=== PATIENT | female | born 1930 | race Caucasian/White ===

== ENCOUNTER → 2016-06-05 | Outpatient (CLI) | payer MEDICARE, OTHER, MEDICAID ==
[~2016-06-05] MED LIST: ADVIL200 MG PO; ANTIVERT25 MG PO; ARICEPT10 MG PO; ASPIRIN LO-DOSE81 MG PO; BAC/NEO/POLY O3.5 GM TOP; CALCIUM CARBON600 MG PO; CARDIZEM SR120 MG PO; CELEXA10 MG PO; CLARITIN10 MG PO; COLACE100 MG PO; DITROPAN XL10 MG PO; DULCOLAX10 MG R; FAMOTIDINE10 MG PO; FEOSOL325 MG PO; FISH OIL1000 MG PO; FLONASE 50 MCG/16 GM INH; FOLBIC RF TABL1 EACH PO; ICAPS MV TABLE1 EACH PO; ICAPS TABLET1 EACH PO; IMDUR30 MG PO; IMODIUM2 MG PO; KEPPRA500 MG PO; LASIX40 M1 PO; LOPID600 MG PO; LOPRESSOR25 MG PO; MAALOX LIQ UNIT30 ML PO; MACROBID100 MG PO; MELATONIN5 M2 PO; MILK OF MA400 MG/5 M PO; MUCINEX600 MG PO; MULTIVITAMINS1 EAC1 PO; NEURONTIN300 MG PO; NITROSTAT0.4 MG PO; OMEGA 3 1,0001 EACH PO; PEPCID20 MG PO; PEPTO BISMOL LIQ1 ML PO; PERCOCET 5-3251 EACH PO; PLAVIX75 MG PO; PRAVACHOL40 MG PO; PREVACID30 M1 PO; PROTONIX40 MG PO; ROBITUSSIN DM U10 ML PO; SALINE NOSE SPR45 ML INH; SYSTANE 0.3-0.440 ML OPHTH; TYLENOL EXTRA500 MG PO; TYLENOL LI325 MG/10. PO; TYLENOL325 MG PO; ULTRAM50 MG PO; [UNRECOGNIZED DRUG - OTHER] PO
[2016-06-05 13:59] LABS: BILIRUBIN URINE NEGATIVE (NEGATIVE); BLOOD URINE 10 /UL (NEGATIVE); COLOR URINE YELLOW (YELLOW); GLUCOSE URINE NEGATIVE (NEGATIVE); KETONE URINE NEGATIVE (NEGATIVE); LEUKOCYTES URINE NEGATIVE /UL (NEGATIVE); NITRITE URINE NEGATIVE (NEGATIVE); PROTEIN URINE NEGATIVE (NEGATIVE); TURBIDITY URINE CLEAR (CLEAR); UROBILINOGEN URINE NORMAL (NORMAL)
[2016-06-05 14:19] LABS: BACTERIA URINE NEGATIVE (NEGATIVE); EPITHELIAL URINE RARE #/HPF (NEGATIVE); RBC URINE RARE #/HPF (NEGATIVE); WBC URINE RARE #/HPF (NEGATIVE)
== END | disposition disaster alternative care site (69) ==
LOC: LJOHN2 13:53
PROVIDERS: Family Medicine
DX: N39.0 Urinary tract infection, site not specified (principal)

== ENCOUNTER 2016-06-06 12:02 | Observation (INO) | payer MEDICARE, OTHER, MEDICAID ==
[~2016-06-06] VITALS: Ht 165.1 cm; Wt 60.3 kg
--- NOTE | ~2016-06-06 | ER ---
PATIENT'S NAME: KAVITA CASTILLO [facility] AGE: 85 Y [address] ROOM: [address] [address] LOCATION: [facility] ADMIT DATE: 06/06/2016 ER/Outpatient Report DISCHARGE DATE: 06/07/2016 FAMILY PHYSICIAN: Rinku Dong MD ATTENDING PHYSICIAN: Rinku Dong IDENTIFICATION: 85-year-old female. CHIEF COMPLAINT: Decreased level of consciousness. HISTORY OF PRESENT ILLNESS: The patient is an 85-year-old female from [facility], whose niece is here present with her daughter, lives in [place]. Apparently, she has had some speech difficulty over the last 2 months, but yesterday and today has been worse, unable to provide words, altered mental status, and unable to feed herself which she normally is able to do. PAST MEDICAL HISTORY: ALLERGIES: TO PENICILLIN, CELEBREX, CODEINE, CORTISONE, DIPHENHYDRAMINE, CARTER INHIBITORS, ARBS, CORTICOSTEROIDS, NONSTEROIDAL, AND SULFA ANTIBIOTICS. CURRENT MEDICATIONS: 1. Tylenol 650 mg q.4 hours p.r.n. 2. Advil 200 mg q.6 hours p.r.n. 3. Aricept 5 mg one time daily. 4. Calcium carbonate 600 mg b.i.d. 5. Celexa 5 mg daily. 6. Dulcolax suppository 10 mg. 7. Famotidine 10 mg daily. 8. Ferrous sulfate 325 mg daily. 9. Flonase 1 spray to each nostril once daily. 10. Imdur 30 mg 1/2 tablet b.i.d. 11. Lopid 600 mg one time daily. 12. Metoprolol 25 mg b.i.d. 13. Milk of magnesia 30 mL p.r.n. 14. Neurontin 300 mg one time daily. 15. Ocuvite Lutein multivitamin one capsule b.i.d. 16. [place]-3, 1000 mg 1 time daily. 17. Oxybutynin 5 mg 2 times a day. 18. Pepto-Bismol 10 mL q.6 hours p.r.n. 19. Plavix 75 mg daily. PATIENT'S NAME: KAVITA CASTILLO [facility] AGE: 85 Y [address] ROOM: [address] [place], [place] [address] LOCATION: [facility] ADMIT DATE: 06/06/2016 ER/Outpatient Report DISCHARGE DATE: 06/07/2016 FAMILY PHYSICIAN: Rinku Dong MD ATTENDING PHYSICIAN: Rinku Dong 20. Pravastatin 40 mg daily. 21. Tylenol 500 mg extra strength two tablets two times a day. 22. Ultram 50 mg q.6 hours p.r.n. pain. MEDICAL PROBLEMS: Urge incontinence, hyperlipidemia, coronary artery disease, macular degeneration, constipation, hypertension, allergic rhinitis, anemia, dyspepsia, depression, dementia. It sounds like maybe she had some normal pressure hydrocephalus. She has had a previous LP per Dr. Combs according to her daughter. PRIOR SURGERIES: Unknown. SOCIAL HISTORY: The patient is a resident at [facility]. Her daughter lives in [place], [place]. One of her nieces is here. Her other nieces are power of energy attorney. Tobacco use, denies. Alcohol use, denies. Drug use, denies. REVIEW OF SYSTEMS: All systems reviewed with the patient and the family and negative other than what is noted in the HPI. PHYSICAL EXAMINATION: VITAL SIGNS: Weight 60 kg, pulse 64, respirations 20, temperature 100.1, blood pressure 137/65, and saturations 93%. GENERAL: An 85-year-old female, who when I asked her questions, answers with garbled speech, and does not really answers the questions. active physical. LUNGS: Clear to auscultation. HEART: Regular rate and rhythm. ABDOMEN: Soft, nondistended. SKIN: [place], warm, and dry. No lesions or rashes noted. NEUROLOGIC: The patient is alert, but she is not oriented. Cranial nerves 2 through 12 grossly intact. Motor strength; she is weak on the lower extremities, in the right upper extremity. NIH Stroke Scale score is 13 and a copy is included on the chart. LABORATORY DATA: Blood cultures x2 have been drawn. Hemoglobin 14.1, hematocrit 40.8, platelets 196, white count 8.0, with a normal differential. Catheter UA; 0-2 white cells, 2-5 red cells, 5-10 epithelial cells. Urine culture pending. Lactate 1.5. Sodium 140, potassium 3.9, chloride 103, CO2 of 25, BUN 21, creatinine 0.9, blood sugar 120. Cardiac enzymes are negative. Liver enzymes are normal. Procalcitonin less than 0.05. INR 1.09. One-view chest x-ray, no acute process, pending Radiology over-read. Head CT without contrast, no PATIENT'S NAME: KAVITA CASTILLO [facility] AGE: 85 Y [address] ROOM: [place] [address] LOCATION: [facility] ADMIT DATE: 06/06/2016 ER/Outpatient Report DISCHARGE DATE: 06/07/2016 FAMILY PHYSICIAN: Rinku Dong MD ATTENDING PHYSICIAN: Rinku Dong acute abnormalities noted. IMPRESSION: 1. Increasing weakness and confusion. 2. History of normal pressure hydrocephalus. 3. Hypertension. 4. Hyperlipidemia. 5. Dementia. PLAN: Discussed with the daughter in [place], the niece that is here, and they feel that this is a significant change for her, so I did discuss with Dr. Whitaker, and the patient will be admitted for observation per Dr. Whitaker. He did evaluate the patient in the emergency room and planned for observation admission. SUSY FONSECA MD CAR/bernarda /[id number] d: 06/07/16 2253 t: 06/12/16 0756, OUTPATIENT REPORT
--- NOTE | ~2016-06-06 | HP ---
PATIENT'S NAME: KAVITA CASTILLO [facility] AGE: 85 Y [address] ROOM: [address] [address] LOCATION: [facility] ADMIT DATE: 06/06/2016 History & Physical DISCHARGE DATE: FAMILY PHYSICIAN: Rinku Dong MD ATTENDING PHYSICIAN: Rinku Dong DATE OF SERVICE: HISTORY OF PRESENT ILLNESS: The patient is an elderly 85-year-old female, who is [facility]. She normally sees Dr. Rinku Dong. She has had problems with increasing weakness over the last couple of days, more confusion, and actually more garbled speech. They did order a urine yesterday, which overall looked negative. Her symptoms worsened, and so family requested that she be brought in for evaluation. She was seen in the emergency room by Dr. Becerra. Thorough workup was done including a CT scan, which was negative for any acute changes. She had lab work including a CMS, which was essentially normal other than a blood sugar of 120. Her procalcitonin was normal at less than 0.05. Her white count was normal and urine was overall negative. The concern now is with some of her garbled speech and increased confusion whether this could potentially be a CVA. ALLERGIES: INCLUDE CELECOXIB, CODEINE, CORTISONE, DIPHENHYDRAMINE, CARTER INHIBITORS, ANGIOTENSIN RECEPTOR BLOCKERS, CORTICOSTEROIDS, NSAIDS, PENICILLIN, SULFA, ANTIBIOTICS, PENICILLIN G, AND ZINC ACETATE. DESPITE THAT, SHE IS ACTUALLY ON SOME OF THOSE MEDICATIONS AT PRESENT. CURRENT MEDICATIONS: 1. Acetaminophen 650 mg every 4 hours as needed for pain. 2. Advil 200 mg 1 capsule every 6 hours as needed for pain. 3. Aricept 5 mg daily. 4. Calcium carbonate 600 mg twice daily. 5. Celexa 5 mg daily. 6. Dulcolax suppository 10 mg per rectum p.r.n. constipation. 7. Famotidine 10 mg 1 daily. 8. Ferrous sulfate 325 one tablet daily. 9. Flonase 1 squirt each nostril daily. 10. Imdur 15 mg twice daily. 11. She is also on Lopid 600 mg daily. 12. Metoprolol tartrate 25 mg twice daily. 13. Milk of magnesia 30 mL daily p.r.n. constipation. 14. Neurontin 300 mg 1 tab daily. 15. Ocuvite with lutein capsule 1 twice daily. 16. [place]-3 capsules 1000 mg one daily. PATIENT'S NAME: KAVITA CASTILLO [facility] AGE: 85 Y [address] ROOM: [address] [place], [place] [address] LOCATION: [facility] ADMIT DATE: 06/06/2016 History & Physical DISCHARGE DATE: FAMILY PHYSICIAN: Rinku Dong MD ATTENDING PHYSICIAN: Rinku Dong 17. Oxybutynin 5 mg p.o. b.i.d. 18. Pepto-Bismol p.r.n. diarrhea. 19. Plavix 75 mg daily. 20. Pravastatin 40 mg daily. 21. Tylenol Extra Strength 500 mg 2 tabs 2 times daily related to pain. 22. Tramadol as needed for pain. PAST SURGICAL HISTORY: We do note that the patient had a stent placed. She has also had a history of a hysterectomy remotely. The patient is accompanied by a granddaughter, and unfortunately, we have limited medical records on her, and family does not really know much about it. She even made a phone call to distant relatives, and the patient is confused, so we can not get much for history. CHRONIC HEALTH PROBLEMS: Include history of cardiovascular disease, for which she has had a stent, depressive disorder, hyperlipidemia, hypertension, spinal stenosis. The patient has also had a previous lumbar puncture, working her up for normal pressure hydrocephalus. She was followed by Dr. Combs for that. HABITS: The patient is a nonsmoker by history. SOCIAL HISTORY: She is currently a resident in [facility]. PHYSICAL EXAMINATION: GENERAL: Shows an elderly, alert-appearing female, but when she goes to speak, it is somewhat of a garbled speech. I can make out occasional words, but otherwise it does not really seem to be any kind of good pattern. HEENT: Her head is normocephalic, atraumatic. Her ears are clear. Eyes are clear. Nose is clear. Oropharynx is slightly dry but otherwise clear. NECK: Supple. No adenopathy, thyromegaly, or bruits. LUNGS: Clear throughout. HEART: Regular rate and rhythm. ABDOMEN: Shows bowel sounds positive. She is nontender and nondistended. EXTREMITIES: No cyanosis, clubbing, or edema. GENITALIA: She was supposedly irritated in her christiano-area, and I took a look at there, some real mild inflammation in the labial region but nothing too significant. No discharge or that type of thing. Extremities: She is able to move all extremities and squeeze, and she has equal strength throughout. LABORATORY AND DIAGNOSTIC DATA: CT scan of the head was reported to show no acute changes. Her CBC with diff PATIENT'S NAME: KAVITA CASTILLO [facility] AGE: 85 Y [address] ROOM: [address] [place], [place] [address] LOCATION: [facility] ADMIT DATE: 06/06/2016 History & Physical DISCHARGE DATE: FAMILY PHYSICIAN: Rinku Dong MD ATTENDING PHYSICIAN: Rinku Dong showed a white count of 8, hemoglobin 14.1, hematocrit 40.8, platelet count 196 with a differential showing 71.5% neutrophils, 14.7% lymphocytes, 11.8% monocytes. Her PTT was normal at 35 with a pro-time of 11.5, INR of 1.09. Procalcitonin was normal at less than 0.05. Her sodium is 140, potassium 3.9, chloride 103, CO2 of 25, glucose 120, calcium 9.5, BUN 21, creatinine 0.9. Total protein 7.2, albumin 3.8, total bilirubin 0.7, alkaline phosphatase 89, AST 16, ALT 13, estimated GFR is 59. Her CPK was 50, CK-MB was 0.5, troponin I was less than 0.040. ASSESSMENT: An elderly female with mental status changes and garbled speech, possible encephalopathy, uncertain etiology. 1. Increasing weakness. 2. History of coronary artery disease with history of stent placement. 3. Previous workup for confusion including carotid Doppler in 05/2015, which showed 1% to 39% stenosis bilaterally, which was nothing significant. 4. Previous workup for normal pressure hydrocephalus with spinal tap in 05/2015 with an opening pressure of 14 cm of water with 30 mL of fluid removed with a closing pressure of 7 cm. 5. Hypertension. 6. Hyperlipidemia. 7. History of bladder incontinence. PLAN: At this point of time, I am going to go ahead and admit the patient to the hospital for workup of her confusion/encephalopathy. I do wonder about the possibility of a stroke, although I can really see no focal deficit. We will go ahead and order an MRI of her head without contrast. We will order repeat labs. She did have a urine done and cultures are pending, but so far, there is no evidence that there is any infection going on. I will turn her over to Dr. Rinku Dong. Workup will continue. MD DIEGO CUNNINGHAM/bernarda /[id number] D: T: [id number] HISTORY & PHYSICAL
[~2016-06-06 12:02] MED LIST changes: -ICAPS MV TABLE1 EACH PO; -KEPPRA500 MG PO; -MELATONIN5 M2 PO; -PERCOCET 5-3251 EACH PO; -PREVACID30 M1 PO; -PROTONIX40 MG PO; -TYLENOL LI325 MG/10. PO
[2016-06-06 13:19] LABS: BASOPHIL # 0.1 K/uL (0.0-0.2); BASOPHIL % 0.6 %; EOSINOPHIL # 0.1 K/uL (0.0-0.5); EOSINOPHIL % 1.1 %; HEMATOCRIT 40.8 % (30.0-46.0); HEMOGLOBIN 14.1 g/dL (10.0-15.0); IMMATURE GRANULOCYTE % 0.3 %; LYMPHOCYTE # 1.2 K/uL (0.8-4.0); LYMPHOCYTE % 14.7 %; MCH 31.8 pg (27.0-34.0); MCHC 34.6 gm/dL (32.0-36.5); MCV 92.1 fl (83.0-98.0); MONOCYTE # 0.9 K/uL (0.0-1.0); MONOCYTE % 11.8 %; MPV 11.2 fl (9.4-12.4); NEUTROPHIL # (ANC) 5.7 K/uL (1.8-7.8); NEUTROPHIL % 71.5 %; NRBC % 0 /100WBC (0-0.00); PLATELET COUNT 196 K/uL (150-450); RBC 4.43 M/uL (3.00-5.00); RDW-CV 11.2 % (11.9-14.6)
[2016-06-06 13:31] LABS: INR - (THERAPEUTIC) 1.09 (0.92-1.07); PROTIME 11.5 SECONDS (9.8-11.4); PTT 25 SECONDS (25-32)
[2016-06-06 13:41] LABS: ALBUMIN 3.8 gm/dL (3.5-5.0); ALK PHOS 89 IU/L (33-138); ALT 13 IU/L (12-78); ANION GAP 15.9 (10.0-19.0); AST 16 IU/L (10-40); BLOOD UREA NITROGEN 21 mg/dL (6-24); CALCIUM 9.5 mg/dL (8.5-10.5); CHLORIDE 103 mMol/L (96-110); CO2 25 mMol/L (22-32); CPK 50 IU/L (21-215); CREATININE 0.9 mg/dL (0.5-1.1); ESTIMATED GFR (MDRD EQUATION) 59; POTASSIUM 3.9 mMol/L (3.7-5.1); SODIUM 140 mMol/L (135-145); TOTAL BILIRUBIN 0.7 mg/dL (0.0-1.5); TOTAL PROTEIN 7.2 g/dL (6.0-8.4)
[2016-06-06 14:12] LABS: BILIRUBIN URINE NEGATIVE (NEGATIVE); BLOOD URINE 25 /UL (NEGATIVE); GLUCOSE URINE NEGATIVE (NEGATIVE); KETONE URINE NEGATIVE (NEGATIVE); LEUKOCYTES URINE 25 /UL (NEGATIVE); NITRITE URINE NEGATIVE (NEGATIVE); PROTEIN URINE NEGATIVE (NEGATIVE); SPEC GRAVITY URINE 1.015 (1.003-1.035); UROBILINOGEN URINE NORMAL (NORMAL)
[2016-06-06 14:14] LABS: COLOR URINE YELLOW (YELLOW); TURBIDITY URINE CLEAR (CLEAR)
[2016-06-06 14:21] LABS: WBC URINE 0-2 #/HPF (NEGATIVE)
[2016-06-06 14:22] LABS: BACTERIA URINE NEGATIVE (NEGATIVE)
--- NOTE | 2016-06-06 17:48 | NUR ---
PATIENT IS 85 YEAR OLD FEMAL WHO LIVES IN [facility]. SHE WENT FROM BEING A ONE ASSIST TO REQUIRING A WHEELCHAIR. UNABLE TO FEED HERSELF NOW. IS MORE APHASIC AND DOES NOT MAKE SENSE. DOES HAVE A HX OF SLURRED SPEECH BUT HAS WORSEN. THIS HAS GONE ON FOR ABOUT 36 HOURS NOW. ALERT TO SELF. EQUAL STRENGTH. UNABLE TO ASSESS SENSATION. CLEAR LUNG SOUNDS ACTIVE BS. HAS TROUBLE FOLLOWING COMMANDS. UNABLE TO FOLLOW COMMANDS FOR SWALLOWING EVAL. WAS GIVEN TYLENOL IN ER FOR HEADACHE. HX OF UTERINE CA. DJD. HYSTER, POLIO, SLURRED SPEECH, CONFUSION, DEMENTIA, CATARACT, CHF,CAD, HTN, HIGH CHOLESTROL, HEART STENTS FREQUENT UTI. MULTIPLE ALLERGIES
--- NOTE | 2016-06-07 04:24 | NUR ---
Significant Event: The patient is Alert and Oriented x1, confused. Denies Numbness and Tingling. Up with 2 Assist, gaitbelt to the commode. Moves all extremities spontaneously and to command. More awake as the night went on. Denies Pain. VSS, Hypertensive. Generalized weakness noted. PIV to the Left hand infusing D5NS +20 kcl at 75ml/hr. NPO due to being to drowsy and garbled speech, order for speech eval. Repositioned Q2H. Follow up:
[2016-06-07 04:38] LABS: BASOPHIL % 0.5 %; EOSINOPHIL # 0.2 K/uL (0.0-0.5); EOSINOPHIL % 2.6 %; HEMATOCRIT 38.7 % (30.0-46.0); HEMOGLOBIN 13.6 g/dL (10.0-15.0); IMMATURE GRANULOCYTE % 0.3 %; LYMPHOCYTE # 1.2 K/uL (0.8-4.0); MCH 31.6 pg (27.0-34.0); MCHC 35.1 gm/dL (32.0-36.5); MONOCYTE # 0.9 K/uL (0.0-1.0); MONOCYTE % 13.6 %; MPV 11.6 fl (9.4-12.4); NEUTROPHIL # (ANC) 4.2 K/uL (1.8-7.8); NRBC % 0 /100WBC (0-0.00); PLATELET COUNT 179 K/uL (150-450); RDW-CV 11.3 % (11.9-14.6); WBC 6.5 K/uL (4.0-11.0)
[2016-06-07 04:53] LABS: ANION GAP 11.7 (10.0-19.0); BLOOD UREA NITROGEN 15 mg/dL (6-24); CALCIUM 8.9 mg/dL (8.5-10.5); CHLORIDE 108 mMol/L (96-110); CO2 25 mMol/L (22-32); CREATININE 0.8 mg/dL (0.5-1.1); ESTIMATED GFR (MDRD EQUATION) > 60; POTASSIUM 3.7 mMol/L (3.7-5.1); SODIUM 141 mMol/L (135-145)
[2016-06-07] MEDS ORDERED: ICAPS MV TABLE1 EACH PO (09:03)
--- NOTE | 2016-06-07 12:11 | NUR ---
A/O X1, soft, mumbling/slurred speech, difficuty word finding at times, incontinent of urine and uses BSC, 2 assist, takes bites of pureed lunch/nectar thick liquids, cooperative, crush meds in applesauce. 1:1 feeder.
--- NOTE | 2016-06-07 12:55 | NUR ---
transfered back to [facility] per w/c in stable condition. Granddaughter at bedside.
[2016-07-06] MEDS ORDERED: MELATONIN5 M2 PO (14:48)
== END 2016-06-07 12:55 ==
LOC: GMED 12:02 → GNTU 15:20
PROVIDERS: Family Medicine; ADMIT Obstetrics & Gynecology Obstetrics
DX: F03.90 Unspecified dementia, unspecified severity, without behavioral disturbance, psychotic disturbance, mood disturbance, and anxiety (principal); R53.1 Weakness; I25.810 Atherosclerosis of coronary artery bypass graft(s) without angina pectoris; I10 Essential (primary) hypertension; E78.5 Hyperlipidemia, unspecified; G47.9 Sleep disorder, unspecified; F32.9 Major depressive disorder, single episode, unspecified; M48.00 Spinal stenosis, site unspecified; Z88.0 Allergy status to penicillin; Z88.2 Allergy status to sulfonamides; Z88.8 Allergy status to other drugs, medicaments and biological substances; Z87.448 Personal history of other diseases of urinary system; Z90.710 Acquired absence of both cervix and uterus; Z79.899 Other long term (current) drug therapy
CPT/HCPCS: G0378; G8996; G8997; G8998; J3480

== ENCOUNTER 2016-07-07 14:00 | Inpatient (IN) | payer MEDICARE, OTHER, MEDICAID ==
[~2016-07-07] VITALS: Ht 154.9 cm; Wt 59.1 kg
--- NOTE | ~2016-07-07 | OR ---
PATIENT'S NAME: KAVITA CASTILLO [facility] AGE: 86 Y [address] ROOM: [place] [address] LOCATION: [facility] ADMIT DATE: 07/17/2016 OR/Procedure Report DISCHARGE DATE: FAMILY PHYSICIAN: Rinku Dong MD ATTENDING PHYSICIAN: Lois Combs SURGEON: Davie Knight MD PETROL TANKER DRIVER: DATE OF PROCEDURE: 07/17/2016 PREOPERATIVE DIAGNOSIS: Hydrocephalus. POSTOPERATIVE DIAGNOSIS: Hydrocephalus. PROCEDURE: Intraabdominal placement of ventriculoperitoneal shunt catheter. CO-SURGEON: Lois Combs MD. FINDINGS: Tip of the catheter aspirated CSF easily and was intraabdominal. ESTIMATED BLOOD LOSS: Minimal. COMPLICATIONS: None. INDICATIONS: The patient is an 86-year-old female who was evaluated by Dr. Combs who felt she was in need of a GENERAL INTERNAL MEDICINE DOCTOR shunt. I was asked to help place this intra-abdominally, as she has had previous abdominal surgeries. Risks, benefits, and alternatives were discussed with the family and she wished to proceed. DESCRIPTION OF PROCEDURE: The patient was taken to the operating room. She was supine, given IV sedation, and subsequently intubated. Her abdomen, chest, neck, and head were all prepped and sterilely draped. Dr. Combs worked on the intracranial portion while I worked on the intraabdominal portion. Using an optical viewing trocar, I entered the abdomen. Pneumoperitoneum was induced. A 2nd trocar was also placed on the left abdomen under direct visualization. Dr. Combs then used the tunneler to tunnel down to the abdominal wall. I made an incision over this area. The ventricular peritoneal shunt catheter was brought through the tunneler. I then inserted this into the abdominal cavity using a tear-away introducer sheath. This was all done under direct visualization. CO2 was released. Dr. Combs finished the ventricular portion. The catheter had free flow of CSF. This was placed intra-abdominally with the catheter down towards the pelvis. The operative field was inspected and appeared hemostatic. Pneumoperitoneum was released. The trocars were removed. The skin edges of all 3 incisions were closed with 4-0 Monocryl suture. Steri-Strips and sterile dressings were placed. PATIENT'S NAME: KAVITA CASTILLO [facility] AGE: 86 Y [address] [place] [facility] [place] [address] LOCATION: [facility] ADMIT DATE: 07/17/2016 OR/Procedure Report DISCHARGE DATE: FAMILY PHYSICIAN: Rinku Dong MD ATTENDING PHYSICIAN: Lois Combs completed the closure of his intracranial portion. DAVIE MD PEREZ ZAMARRIPA/bernarda /[id number] d: 07/17/168 t: 07/23/16 1123, OPERATIVE SUMMARY
--- NOTE | ~2016-07-07 | OR ---
PATIENT'S NAME: KAVITA CASTILLO [facility] AGE: 86 Y [address] ROOM: [place] [address] LOCATION: [facility] ADMIT DATE: 07/17/2016 OR/Procedure Report DISCHARGE DATE: FAMILY PHYSICIAN: Rinku Dong MD ATTENDING PHYSICIAN: Lois De Jesus SURGEON: Lois De Jesus MD PHOTO EQUIPMENT TECHNICIAN: Karoline Washington and Rommel Izaguirre. DATE OF PROCEDURE: 07/17/2016 PREOPERATIVE DIAGNOSIS: Hydrocephalus. POSTOPERATIVE DIAGNOSIS: Hydrocephalus. PROCEDURE PERFORMED: Placement of ventriculoperitoneal shunt with laparoscopic assistance. CO-SURGEON: Davie Knight MD. ANESTHESIA: General. ANESTHESIA PROVIDER: Roger Chaudhary MD. HISTORY: The patient is an 86-year-old female with clinical and radiological features consistent with normal-pressure hydrocephalus. The patient had spinal taps and responded favorably to the taps. Shunting was therefore felt to be appropriate for her. The procedure, benefits, and risks were discussed with the patient's granddaughter and with her consent, the patient was taken to the operating room for surgery. PROCEDURE IN DETAIL: In the operating room, the patient was placed in a supine position. Anesthesia was induced. She was intubated. The patient's head was placed on a gel donut. A roll was placed under her shoulders. The hair was clipped on the back of the head on the right-hand side. The incision line was marked out in the right parieto-occipital area. Dr. Knight was responsible for the abdominal part of the incision. The whole area from head to abdomen was prepped and draped in a sterile fashion. Local anesthesia was infiltrated around the cranial incision. The incision was opened and held back with self-retaining retractors. The shunt passer was tunneled from the cranial incision to the abdomen. Dr. Knight took the passer and exteriorized it. The peritoneal catheter was then fed through the passer, and the passer was removed. A bur hole was made at the cranial incision site. The dura was coagulated. The ventricular catheter was trimmed to a length of 11 cm. Extra side holes were made. The dura was coagulated. The catheter was inserted into the PATIENT'S NAME: KAVITA CASTILLO [facility] AGE: 86 Y [address] ROOM: [facility] [place] [place], [place] [address] LOCATION: [facility] ADMIT DATE: 07/17/2016 OR/Procedure Report DISCHARGE DATE: FAMILY PHYSICIAN: Rinku Dong MD ATTENDING PHYSICIAN: Lois De Jesus ventricles. The ventricle was accessed at first try with prompt return of clear-colored CSF. Opening pressure was between 10 and 12 cm of water. The programmable valve was programmed to a pressure of 9 cm of water. The valve was connected to the ventricular catheter, and the two were tied together. The valve was also connected to the peritoneal catheter and the two were tied together. Dr. Knight placed the peritoneal catheter in the abdomen with laparoscopic assistance. This part of the procedure will be covered in his separate operative note. General surgical assistance was needed as the patient had prior abdominal surgery with adhesions, and it was felt that she would have a best chance of the shunts being placed safely with a general surgeon helping. Having completed the shunt insertion, the incisions were closed with appropriate suture materials. Sterile dressings were applied. The patient's anesthesia was reversed. She was extubated and taken to the recovery room to complete her recovery. I was present at and performed the cranial part of the procedure while Dr. Knight performed the peritoneal aspect of the procedure. There were no apparent intraoperative complications. Swabs, needles, and instruments were all accounted for at the end of the case. Estimated blood loss was less than 20 mL, and there was no reason for blood transfusion. I expect the patient would benefit from this procedure. The postoperative CT scan will be obtained to confirm shunt placement. LOIS DE JESUS MD CNO/modl /[id number] d: 07/18/16 0236 t: 07/27/16 1704, OPERATIVE SUMMARY
--- NOTE | ~2016-07-07 | DS ---
PATIENT'S NAME: KAVITA CASTILLO [facility] AGE: 86 Y [address] ROOM: [facility] [place], [place] [address] LOCATION: [facility] ADMIT DATE: 07/17/2016 Discharge Summary DISCHARGE DATE: 07/21/2016 FAMILY PHYSICIAN: Rinku Dong MD ATTENDING PHYSICIAN: Lois Combs REASON FOR ADMISSION: The patient was a scheduled admission for an elective procedure. The patient had been evaluated for hydrocephalus and a GANG MINER shunt was needed. The patient was admitted to the hospital on July 17 for the procedure to be performed. COURSE IN THE HOSPITAL: The patient underwent placement of a right-sided ventriculoperitoneal shunt on July 17, 2016. The procedure was gently performed by Dr. Knight and Dr. Combs. The surgery was uncomplicated. The patient's postoperative course was mostly uneventful. The only notable thing was that the patient became rather combative and delirious after the surgery. She required some Haldol to calm her down. Postoperative CT scan showed that the catheter was in good position and there were no complications. The patient's shunt was programmed to a setting of 90 mm of water. The opening pressure at the time of surgery was between 10 and 12 cm of water. The patient did well and by the 21 of July, had met all criteria for dismissal. She was transferred to [facility] on that day to continue her recovery. She will be followed up in the Neurosurgery [facility] at some point to see how she is doing. MD RADHA DUFFO/modl /[id number] d: 07/27/161958 t: 07/31/161338, DISCHARGE SUMMARY
[~2016-07-07 14:00] MED LIST changes: +ICAPS MV TABLE1 EACH PO; +MELATONIN5 M2 PO
[2016-07-17 14:35] LABS: HEMATOCRIT 33.8 % (30.0-46.0); HEMOGLOBIN 11.5 g/dL (10.0-15.0)
[2016-07-17 14:48] LABS: ALBUMIN 3.5 gm/dL (3.5-5.0); CALCIUM 8.4 mg/dL (8.5-10.5); POTASSIUM 3.9 mMol/L (3.7-5.1)
[2016-07-17 14:49] LABS: ANION GAP 16.9 (10.0-19.0); PHOSPHORUS 1.8 mg/dL (2.5-4.9)
--- NOTE | 2016-07-17 19:10 | NUR ---
Significant Event: A/O X1 (this is baseline), does not follow commands, becomes combative/aggitated, pulling at IV site/telemetry/romero, pushes nurse away, slaps & kicks, bilat. wrist restraints. made aware. R)FA saline lock, IVF to R)FA, romero patent, R)head drsg intact saturated with bloody shadow drainage, laps sites x3 guaze/tegaderm D/I x3, o2 sat 93% on RA after pulling off her O2, Dopamine @ 4mcg, Follow up: monitor safety,
--- NOTE | 2016-07-18 07:00 | NUR ---
Significant Event: Patient is drowsy at times but is otherwise alert and responds to name. States her head hurts at times-pain was relieved with PRN IV Tylenol. Does point to where her pain is located as well. Initially patient was very drowsy and wouldn't follow commands. Dr. Combs rounded and patient was restless, agitated, and became combative. Tried to place patient in mitten restraints but patient continued to find ways out of them so remained in bilateral wrist restraints. Did discontinue restraints by 0530. Unable to assess sensation. By shift change patient is answering more questions appropriate (yes/no) and is pleasant. Has not been pulling at lines. PERRL. Moves spontaneously. Generalized weakness. Titrated down to RA. Lungs clear and diminished. Bowel sounds active. No BM this shift. Romero intact draining yellow urine with no complications. 2 PIVs to right forearm, one infusing NS at 50 mL/hr and the other is SL with no complications. SCDs in place as well as TEDs. VSS. Afebrile. SBP 130s. Dopamine has been off since 2nd assessment. Did not take PO meds last night--refused PO intake. Follow up: monitor neuro status, alarms, reposition Q2H, oral cares Significant Event: A/O X1 (this is baseline), does not follow commands, becomes combative/aggitated, pulling at IV site/telemetry/romero, pushes nurse away, slaps & kicks, bilat. wrist restraints. made aware. R)FA saline lock, IVF to R)FA, romero patent, R)head drsg intact saturated with bloody shadow drainage, laps sites x3 guaze/tegaderm D/I x3, o2 sat 93% on RA after pulling off her O2, Dopamine @ 4mcg, Follow up: monitor safety,
--- NOTE | 2016-07-18 16:23 | NUR ---
ULTRA HIGH FALL RISK Significant Event: A/O X1 (baseline), confused, some conversational, calm, follows commands, drsg D/I to R)head, drsg D/I to lap sites x3, mechanical soft diet, crush meds, romero patent, IVF R)FA, saline lock R)FA, family visited @ bedside, full lift -up to chair, Follow up: Return to [facility] next week.
--- NOTE | 2016-07-19 07:33 | NUR ---
Significant Event: Disoriented x3. Does not follow commands at all times. Dressing to head saturated with bloody drainage and changed. Lap sites x3 to abdomen with gauze and tegaderm dry and intact. Vital signs stable and on room air. Haldol given at hs for restlessness and trying to get out of chair/bed. Took medications crushed in applesauce. Butler catheter patent with yellow urine. Poor appetite with little intake of food and fluids. IV fluids running through right forearm. Follow up:
--- NOTE | 2016-07-19 15:05 | NUR ---
ULTRA HIGH FALL RISK Significant Event: A/O X1, confused, some speech muffled, follows commands most of the time, full lift to chair, family @ bedside today, R)head drsg changed by - with large amt. blood dennys, lavell to lap sites x3 D/I, takes bites of diet then states "I don't want that" IVF R)FA, saline lock R)FA, romero removed at 1445 - Follow up: return to [facility]
--- NOTE | 2016-07-20 05:04 | NUR ---
Significant Event: Pt A&Ox1. VS stable, remains on RA. Speech is muffled and garbled. Hx of dementia. Raymond HEAD, in black box on side table. LS remain clear/dim throughout. I gave meds crushed in chocolate pudding (pretty much took all of them). Carrie pulled yesterday @ 1445, had to do straight cath for 950 this AM. Pt is q2 turn, full lift. Incision to Rt side of head, stapled, covered. No drainage currently. 3 lap sites covered in gauze and tegaderm. Mech soft diet, thin liquids. PIV x2, RFA, SL; RFA NS @ 50. Gave Haldol last night around 1731. Have not had to give any overnight. Follow up: Continue plan of care. Address code status. Have Obasi talk to family again. To d/c back to [facility] when appropriate.
--- NOTE | 2016-07-20 12:37 | NUR ---
Update from nursing that Salima is from [facility] and per family that was in the room, they would like for her to go back on skilled care as she wasn't on therapies there before. I let nursing know that I would address this with family and also [facility] staff as well. I phoned over to [facility], talked with Cait Haley, let her know that I had reviewed Salima's chart and it looked as if Dr. Combs had wrote for therapies to eval and treat and that we were looking at her coming back to them tomorrow. Cait states that this is fine, we set up a van time for 1200 tomorrow pending 's clearance to dismiss at that time. I went to stop by Salima's room, but she was working with therapies and no family was present. Packet started, orders printed and no ID Screen is needed as she is a return admission. I called and talked with Jair EVANS, on the phone. Explained all of the above to her. She is in agreement with Salima going back to [facility] on skilled services as soon as tomorrow, she just requests that we call her with an update on if/when she is for sure going. LEt her know that this was fine. She also tells me that she works in [place] so it is usually her sister or her uncle that is up here and we can give updates to them or ask them questions if needed. No other questions, needs or concerns. CM to continue to follow and assist. Plan return back to [facility] tomorrow if medically stable at that time. RN to RN number was left on the chart for nursing to call in report before Salima is dismissed.
--- NOTE | 2016-07-20 19:14 | NUR ---
Significant Event: a/o to person. patient has had increased alertness and more conversive as shift has progressed. speech is soft, garbled. denies pain. moves all extremities to command and spontaneously. DSG to right side of head C/D/I. DSGs x3 to abdomen C/D/I. Ambulates with walker/gait belt and one-two assist. voided 450 per BSC this shift. small BM. Dulcolax suppository administered with results pending. Regular/mechanical soft diet. Takes meds whole or crushed in pudding. Plan- return to SNF tomorrow.
--- NOTE | 2016-07-21 04:28 | NUR ---
Significant Event: The patient is Alert and Oriented x1, Person only. Forgetful, Conversation is disorganized. Moves all extremities spontaneously and to command. Up with 1-2 Assist, Gaitbelt and walker. Generalized weakness. VSS. On room air. Bruising to arms, Dressings to Abdomen and Head C/D/I. No complaints of pain, but is on scheduled Tylenol. PIV to the Right Forearm infusing NS at 50ml/hr. Another PIV to the Right Forearm saline locked. Took pills crushed with pudding. Follow up:
--- NOTE | 2016-07-21 11:08 | NUR ---
Significant Event: A/O to person. Speech is garbled most of the time. moves all extremities spontaneously and on command. equal/weak strength throughout. takes meds crushed in pudding. ambulates with walker/gait belt and one assist. Large BM this am. 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 DSGs to abdomen x 3 C/D/I. Plan- transfer to SNF at 1200.
--- NOTE | 2016-07-21 12:18 | NUR ---
Orders were filled out by for Salima to go back to [facility] today. I called and updated NATHAN Guevara to this information and let her know that we were planning on having her go at 1200. Katalina was fine with this, thanked me for letting her know. I called over and talked with Cait, confirmed the 1200 van time and also let her know that dismissal orders have been faxed to her. Cait states that this is fine and they are still planning on the van being here at 1200. RN to RN number was given to TALITA Acosta to call in report before Salima goes to SNF. Social visit with Salima, she is in agreement with going back to [facility] today. Let her know that I updated Katalina Guevara as well so she was aware of the plan. Salima was happy with this. No other questions, needs or concerns. CM to continue to follow and assist. Plan [facility] today at 1200.
== END 2016-07-21 12:21 | DRG 33 ==
LOC: G3N 07-17 06:00 → GNTU 07-17 14:26
PROVIDERS: Anesthesiology; ADMIT Neurological Surgery
PROC: 00163J6 Bypass Cerebral Ventricle to Peritoneal Cavity with Synthetic Substitute, Percutaneous Approach (ICD-10-PCS; principal; 2016-07-17)
PROC: 0WJG4ZZ Inspection of Peritoneal Cavity, Percutaneous Endoscopic Approach (ICD-10-PCS; 2016-07-17)
DX: G91.2 (Idiopathic) normal pressure hydrocephalus (principal); I95.9 Hypotension, unspecified; Z78.1 Physical restraint status; I10 Essential (primary) hypertension; M48.00 Spinal stenosis, site unspecified; E78.5 Hyperlipidemia, unspecified; F32.9 Major depressive disorder, single episode, unspecified; I25.10 Atherosclerotic heart disease of native coronary artery without angina pectoris; J42 Unspecified chronic bronchitis; R41.0 Disorientation, unspecified
CPT/HCPCS: C1892; J0131; J1100; J1265; J1630; J2405; J2550; J3010; J3370; J7030; J7050; P9045; Q9967

== ENCOUNTER 2016-07-24 09:55 | Inpatient (IN) | payer MEDICARE, OTHER, MEDICAID ==
[~2016-07-24] VITALS: Ht 154.9 cm; Wt 55.1 kg
--- NOTE | ~2016-07-24 | HP ---
PATIENT'S NAME: KAVITA CASTILLO [facility] AGE: 86 Y [address] ROOM: [place] [address] LOCATION: [facility] ADMIT DATE: 07/24/2016 History & Physical DISCHARGE DATE: FAMILY PHYSICIAN: Rinku Dong MD ATTENDING PHYSICIAN: Yoly DASILVA DATE OF SERVICE: CHIEF COMPLAINT: Seizure. HISTORY OF PRESENT ILLNESS: The patient is an 86-year-old female with past medical history of stroke, hydrocephalus, coronary artery disease, dementia, hypertension, hyperlipidemia, and dysphagia who [facility] with [facility]iveness and fever. The patient has a history of hydrocephalus and was recently admitted to our hospital, and has had PROCESSING TECH shunt placement, and was [facility] to [facility]. The patient resides at [facility]. However, since her discharge, the patient has not been feeling well and has noted to have decreased oral input and increased fatigueness. The patient today was found unresponsive and was found to have fever per POA, granddaughter. The patient was transferred to our emergency department for further investigation. In the emergency department on initial evaluation, the patient was found to have head bleed around the PROCESSING TECH shunt placement, anemia with tarry stool with a hemoglobin of 7.2, and significant pyuria. Of note, the patient has been having aphasia, weakness, and decreased motor skill, and was seen by Dr. Thompson and Dr. Combs in the past and was noted to have elevated ENGINEERED WOOD DESIGNER pressure via LP. Thus the patient was admitted on 07/17/2016 and had a PROCESSING TECH shunt placed on the . PAST MEDICAL HISTORY: 1. Stroke. 2. Hydrocephalus. 3. CAD, on Plavix. 4. Dementia. 5. Hypertension. 6. Hyperlipidemia. 7. Dysphagia. PAST SURGICAL HISTORY: PROCESSING TECH shunt placement. FAMILY HISTORY: Unable to obtain. The patient has dementia and poor historian. PATIENT'S NAME: KAVITA CASTILLO [facility] AGE: 86 Y [address] ROOM: [place] [address] LOCATION: [facility] ADMIT DATE: 07/24/2016 History & Physical DISCHARGE DATE: FAMILY PHYSICIAN: Rinku Dong MD ATTENDING PHYSICIAN: Yoly DASILVA SOCIAL HISTORY: The patient lives at [facility]. MEDICATIONS: Currently being reconciled. REVIEW OF SYSTEMS: Unable to obtain due to patient's poor mentation. PHYSICAL EXAMINATION: VITAL SIGN: Temperature of 100.0 Fahrenheit, blood pressure 125/61, pulse rate 64, respiratory rate 18, and saturating 95% on room air. GENERAL APPEARANCE: The patient is lying on bed, somnolent, but awakes to voice. HEENT: Head; the patient's recent surgical incision and suture are clean, dry, and intact. Eyes; no eye discharge. Nose; no nasal discharge. Ears; hard of hearing. No ear discharge. Mouth; significant dry oral mucosa. HEART: Regular rate and rhythm. No murmurs, rubs, or gallops. CHEST: Clear to auscultation bilaterally. ABDOMEN: Soft, nontender, and nondistended. Bowel sounds present. SKIN: Warm to touch. Skin also shows extra folds due to poor malnutrition. ENGINEERED WOOD DESIGNER: The patient is somnolent, but awakes to voice. Follows commands. Motor strength in lower extremities is 0/5 and upper strength is 3/5. LABORATORY DATA AND IMAGING STUDIES: Data: Sodium of 156, potassium 3.4, BUN of 55, creatinine of 1.1, CO2 of 23, and INR of 1.11. Platelets of 263,000, hemoglobin 7.2, and white blood cell count of 11.2. UA shows significant pyuria. CT of head shows acute intraparenchymal hemorrhage adjacent to the shunt catheter in the posterior right parietal area. Also shows intracranial air associated with shunt catheter placement. Chest x-ray; cardiac enlargement, patchy left infrahilar and left base opacity which could reflect scarring, atelectasis, or infiltrate. ASSESSMENT AND PLAN: 1. Acute blood loss anemia. Etiology secondary most likely secondary to upper gastrointestinal bleed as the patient has dark stool and elevated BUN. We will start the patient on Protonix drip. We will type and cross screen and transfuse 2 units of packed red blood cells to keep hemoglobin above 8 as the patient has a history of coronary artery disease. a. Discussed the case with Dr. Bird our Gastroenterology group. The patient will be seen by Dr. Solares. We will keep the patient n.p.o. PATIENT'S NAME: KAVITA CASTILLO [facility] AGE: 86 Y [address] ROOM: [facility] [place], [place] [address] LOCATION: [facility] ADMIT DATE: 07/24/2016 History & Physical DISCHARGE DATE: FAMILY PHYSICIAN: Rinku Dong MD ATTENDING PHYSICIAN: Yoly DASILVA 2. Intraparenchymal bleed. CT shows intraparenchymal bleed around the ventriculoperitoneal catheter. No signs of mass effect and/or herniation. We will hold Plavix. We will repeat CT tomorrow morning in a.m. We will consult Dr. Combs or Neurosurgery. We will have serial neurological examinations during her stay. 3. Urinary tract infection. The patient presenting with fever and elevated white blood cells in urine. The patient is already started on ceftriaxone in the emergency department. However, we will add azithromycin as chest x-ray shows possible left lower lobe infiltrate. We will also acquire blood culture and sputum culture. 4. Hypernatremia, etiology secondary to poor oral intake. Sodium currently is 156. Since the patient is also dehydrated, we will give the patient D5 half-normal saline at 75 mL an hour. Blood pressure is currently stable. The patient will also get 2 units of packed red blood cells. To follow sodium with renal function panel closely. Not to correct sodium greater than 10 to 12 mEq in 24 hours. 5. Gastrointestinal bleed. Please see problem #1 and problem #6. 6. Hypokalemia. We will supplement potassium. 7. History of coronary artery disease. The patient is currently on Plavix. We will hold the Plavix due to acute head bleed and gastrointestinal bleed. This was discussed with Katalina EVANS. Discussed about the risk of holding Plavix. She understands the risk, however, due to acute head bleed and gastrointestinal bleed, we will discontinue Plavix. Also apparently last stent placement was close to 10 years ago according to granddaughter. 8. Hypertension, stable. We will hold antihypertensive medication as the patient is dehydrated. To continue IV fluids. 9. Hydrocephalus, ongoing. Ventriculoperitoneal shunt in place. However, with bleeding around this, Neurosurgery will be consulted. 10. Severe protein-calorie malnutrition. The patient has a history of dysphagia. Once the acute issues stabilizes, discussion will be made about tube feeding. 11. Code Status: DNR. I have personally reviewed the patient's medical record including but not limited to, blood work and radiology report. Total time spent with the patient is greater than 70 minutes, more than 50% of the time was spent in direct patient's care and patient's consultation. Case was reviewed with the patient and the patient's granddaughter who is a POA, Ms. Katalina Guevara. All questions were answered to the granddaughter's satisfaction. Case was reviewed with Dr. Lindsay and Dr. Bird, our Gastroenterology doctor. We will admit the patient. Code status on admission is DNR. PATIENT'S NAME: KAVITA CASTILLO [facility] AGE: 86 Y [address] ROOM: [place] [address] LOCATION: [facility] ADMIT DATE: 07/24/2016 History & Physical DISCHARGE DATE: FAMILY PHYSICIAN: Rinku Dong MD ATTENDING PHYSICIAN: Yoly DASILVA MD AD/modl /[id number] D: [id number] T: [id number] HISTORY & PHYSICAL
--- NOTE | ~2016-07-24 | HP ---
PATIENT'S NAME: KAVITA CASTILLO [facility] AGE: 86 Y [address] ROOM: [place] [address] LOCATION: [facility] ADMIT DATE: 07/24/2016 History & Physical DISCHARGE DATE: FAMILY PHYSICIAN: Rinku Dong MD ATTENDING PHYSICIAN: Yoly DASILVA DATE OF SERVICE: ADDENDUM: 1. Possible seizure. According to history, the patient was somewhat unresponsive Longterm. However she seemed to be somewhat back to baseline at least when compared to the past few days. There is concern for possible seizure, since the patient has recent head bleed. We will start the patient on Keppra 1000 mg b.i.d. Discussed case with Neurosurgery Dr. Combs. MD SAPNA HOLLAND/bernarda /[id number] D: [id number] T: [id number] HISTORY & PHYSICAL
--- NOTE | ~2016-07-24 | DS ---
PATIENT'S NAME: KAVITA CASTILLO [facility] AGE: 86 Y [address] ROOM: [place] [address] LOCATION: [facility] ADMIT DATE: 07/24/2016 Discharge Summary DISCHARGE DATE: 07/30/2016 FAMILY PHYSICIAN: Rinku Dong MD ATTENDING PHYSICIAN: Kay Frederick CONSULTING PHYSICIANS: 1. Dr. Bird, Gastroenterology. 2. Dr. Combs, neurosurgeon. DIAGNOSES: 1. Severe sepsis. 2. Escherichia coli urinary tract infection. 3. Intraparenchymal hemorrhage adjacent to shunt catheter of the posterior right parietal area. 4. Upper gastrointestinal bleed. 5. Acute blood loss anemia. 6. Hypernatremia. 7. Hypokalemia. 8. History of coronary artery disease. 9. History of hypertension, essential. 10. History of dementia Alzheimer's type. 11. Advanced age/fragility. 12. Deconditioning, generalized weakness. 13. Dysphagia. DISCHARGE MEDICATIONS: 1. Imdur 15 mg p.o. b.i.d., hold for systolic blood pressure less than 120. 2. Levetiracetam 500 mg p.o. twice daily. 3. Levaquin 750 mg p.o. at 10:00 a.m., stop date of 08/02/2016. 4. Melatonin 5 mg p.o. q.h.s. 5. Lopressor 25 mg p.o. twice daily, hold for systolic blood pressure less than 95 or heart rate less than 50 beats per minute. 6. [place]-3 fatty acids 1000 mg p.o. daily. 7. Protonix 40 mg p.o. twice daily at 0700 hours and 2100 hours for a total of 6 weeks, stop date is 09/09/2016. 8. Pravachol 40 mg p.o. q.h.s. 9. Tylenol 650 mg p.o. q.4 hours p.r.n. pain or fever. 10. Dulcolax suppository 10 mg rectally daily. 11. Pepto-Bismol 10 mL p.o. q.6 hours p.r.n. diarrhea. 12. Milk of magnesia 30 mL p.o. daily p.r.n. constipation. 13. Oxybutynin 10 mg p.o. daily. 14. Plavix 75 mg p.o. daily. 15. Benazepril 10 mg p.o. daily. 16. Famotidine 10 mg p.o. daily. PATIENT'S NAME: KAVITA CASTILLO [facility] AGE: 86 Y [address] ROOM: [place] [address] LOCATION: [facility] ADMIT DATE: 07/24/2016 Discharge Summary DISCHARGE DATE: 07/30/2016 FAMILY PHYSICIAN: Rinku Dong MD ATTENDING PHYSICIAN: Kay Frederick 17. Multivitamin p.o. daily. RADIOLOGIC DATA: 1. Chest x-ray on 07/24/2016 showed cardiac enlargement and patchy left infrahilar and left base opacity, which could reflect scarring, atelectasis, or infiltrate, and low lung volumes. 2. CT of the head without contrast on 07/24/2016 shows the shunt catheter placed at the right posteroparietal approach is present. There is an acute intraparenchymal hemorrhage adjacent to the shunt catheter in the posterior right parietal area, intracranial air associated with shunt catheter placement, generalized atrophic changes, stable ventricular volume. 3. CT of the head on 07/25/2016 for followup showed no changes compared to the day previous. PERTINENT LABORATORY DATA: Upon admission, the patient's hemoglobin was found to be 7.2, hematocrit 21.7, platelets were normal at 263, white count was 11.2. The patient was transfused with 2 units of packed RBCs, and she was started on proton pump drip. Blood products. The patient received 2 units packed RBCs on 07/24/2016. HOSPITAL COURSE: Please refer to the admitting H and P dictated by Dr. Villanueva. The patient was admitted to [facility] for acute blood loss anemia and transfused with 2 units of packed RBCs and started on a proton IV drip. Neurosurgery, Dr. Combs, was consulted along with Gastroenterology. The patient was taken for an EGD on 07/25/2016, which showed linear clean based deep ulcer in the low GE junction. At the time of the EGD, it was not bleeding, and we could not apply the hemoclips given the location but did recommend PPI b.i.d. for 6 weeks, followed by repeat EGD and continuing to hold the Plavix, which was held upon admission. The patient had significant hypernatremia upon admission with a sodium of 156, felt to be secondary to dehydration and poor oral intake. This did trend down with the administration of D5W and trended down nicely and was at 146 the day prior to discharge. The patient was also initially started on azithromycin IV upon admission, and blood cultures were obtained, which were ultimately negative. The patient was encephalopathic secondary to her sepsis. Once the urine culture came back to show E. coli On 07/26/2016, the azithromycin was discontinued and Levaquin was initiated IV. Rocephin had also been being given, and it was discontinued at the time of the identification of the UA culture. The patient also had electrolyte imbalance with hypokalemia, at its mayur was 3.0. The patient did receive replacement throughout her hospitalization. Slowly, the patient's encephalopathy improved. The patient was quite debilitated though physically and was heavy to assist. We had PT, OT, and speech work with the patient during her hospitalization and make dietary recommendations, which were nectar- PATIENT'S NAME: KAVITA CASTILLO [facility] AGE: 86 Y [address] ROOM: [place] [address] LOCATION: [facility] ADMIT DATE: 07/24/2016 Discharge Summary DISCHARGE DATE: 07/30/2016 FAMILY PHYSICIAN: Rinku Dong MD ATTENDING PHYSICIAN: Kay Frederick thickened liquids and pureed diet while they continued to work with her on her dysphagia. The patient was covered with Keppra throughout her hospitalization, and she was found unresponsive, and there was concern for potential underlying seizure. The patient had no difficulties during hospitalization with any seizure-like activity. The patient's family was quite attentive throughout her hospitalization, involved with her care and discharge planning. Ultimately, it was felt that the patient would be appropriate for discharge back to the longterm setting while finishing her antibiotic course and continue with therapies. On 07/29/2016, hemoglobin was 12.3, hematocrit 35.8. Sodium was down to 146, potassium 4.2, chloride 115, creatinine 0.7, and GFR is greater than 60. Arrangements were made made for the patient to discharge back to [facility] on 07/30/2016. The patient should follow a pureed-food diet and nectar- thickened liquids and lactose-free diet. Medications can be crushed and given in applesauce. She needs to undergo an EGD on or around 09/10/2016, which would conclude 6 weeks of b.i.d. proton pump inhibitors. Plavix should be held 3 days prior to the EGD. Gastroenterology Service did feel comfortable restarting the Plavix, which was started on 07/29/2016. We are recommending that the patient followup with Dr. Dong in [address] Combs did not feel that followup is necessary from a neurosurgery perspective. The patient's family was in agreement to plan to transfer the patient back to [facility]. Discharge of this patient took greater than 30 minutes and included coordinating care with subspecialists, making arrangements for followup, reviewing medications and visiting the patient's family, concerning the discharge plan. ANDRZEJ SAN PA-C FOR MD BELLA GUTIERREZ/bernarda /[id number] d: 07/30/162 t: 08/03/16 1510, DISCHARGE SUMMARY
--- NOTE | ~2016-07-24 | ER ---
PATIENT'S NAME: KAVITA CASTILLO [facility] AGE: 86 Y [address] ROOM: [place] [address] LOCATION: [facility] ADMIT DATE: 07/24/2016 ER/Outpatient Report DISCHARGE DATE: FAMILY PHYSICIAN: Rinku Dong MD ATTENDING PHYSICIAN: Yoly VILLANUEVA CHIEF COMPLAINT: General illness. HISTORY OF PRESENT ILLNESS: The patient was brought in by ambulance today from [facility] for evaluation of decrease in her activity and some fever. The patient has been having fever to the 101 range recently. The facility notes that she is having difficulty swallowing, decreased responsiveness, and some mouth tremors over the last few hours. Of note, the patient did have a ventriculoperitoneal shunt placed by Dr. Combs 7 days ago. She has no other issues known at this time. The exact context is unknown. The family notes that she certainly has not gotten better. The home is noting that she is not speaking or swallowing and she is very weak. Per facility, the patient is DNR. No other acute issues at this time. PAST MEDICAL HISTORY: Extensive and documented on the record and reviewed by me. PAST SURGICAL HISTORY: Documented on the record and reviewed by me. ALLERGIES: DOCUMENTED ON THE RECORD AND REVIEWED BY ME. MEDICATIONS: Documented on the record and reviewed by me. REVIEW OF SYSTEMS: All systems were reviewed with family and facility and EMS, but the patient was unable to answer questions appropriately for review of systems, otherwise negative except per HPI. PHYSICAL EXAMINATION: VITAL SIGNS: Blood pressure 125/61, pulse 68, respiratory rate is 18, temperature 100.0, and SpO2 is 95% on room air. GENERAL: An age-appropriate, frail-appearing female, in no obvious pain or distress, on the exam table with tremor of the jaw. HEENT: Normocephalic and atraumatic. Eyes are PERRL. Oropharynx is very dry with a dark exudate overall oral surfaces including the teeth. PATIENT'S NAME: KAVITA CASTILLO [facility] AGE: 86 Y [address] ROOM: [place] [address] LOCATION: [facility] ADMIT DATE: 07/24/2016 ER/Outpatient Report DISCHARGE DATE: FAMILY PHYSICIAN: Rinku Dong MD ATTENDING PHYSICIAN: Yoly VILLANUEVA NECK: Supple. The trachea is midline. HEART: Regular rate and rhythm with no murmurs. LUNGS: Grossly clear to auscultation bilaterally with no rhonchi, wheezes, or rales. ABDOMEN: Soft, nontender, and nondistended. No rebound or guarding. BACK: Normal to inspection and palpation. RECTAL: Decreased rectal tone with dark liquid stool. EXTREMITIES: Warm and well perfused. No obvious deformities. SKIN: Grossly intact with some erythema across the sacrum without skin breakdown. NEUROLOGIC: The patient is awake. She does follow some very simple commands such as opening her mouth. She is nonverbal. There is a tremor most prominent of the mouth. She has no obvious asymmetry on exam, though definitive evaluation is very difficult. LABORATORY DATA AND X-RAYS: Head CT revealed some bleeding around the newly placed catheter approximately 1.8 cm in greatest diameter. Chest x-ray without obvious abnormality per my review. Urinalysis shows 500 leukocytes, positive nitrites, 50 blood. Micro: Wbc packed field, rbc 0 to 2, epithelials 0 to 2, bacteria many. CMS: Sodium of 156, potassium 3.4, chloride is 124, CO2 is 23, BUN is 55, and creatinine 1.1. GFR 47. LFTs grossly unremarkable. CRP is 1.33. CBC: WBC is 11.2; hemoglobin 7.2, down from 11.5; and platelets of 263. INR is 1.11. Procalcitonin 0.16. Lactate is 1.6. Hemoccult-positive. Blood type O positive. Troponin is below threshold. EKG reveals sinus rhythm, first- degree heart block, rate of 60, otherwise normal intervals and left axis deviation. No acute ischemia. IMPRESSION: 1. Severe urinary tract infection. 2. Severe hypernatremia. 3. Intracranial hemorrhage associated with surgical site. 4. Acute blood loss anemia likely secondary to gastrointestinal bleeding. 5. Mild hypokalemia. EMERGENCY DEPARTMENT COURSE: The patient was seen and evaluated. It is noted that she is DNR. Extensive discussion with the patient's POA reveals that they would want everything up to, but not including intubation and chest compressions at this time. The patient was seen and evaluated as above. Given the patient's UTI, she was given Rocephin. She will also require gentle volume resuscitation, which was deferred to the hospitalist for admission. The patient is primarily taking care of by Dr. Rinku Dong; however, Dr. Paredes, on-call physician, deferred to hospitalist for further evaluation. The patient does not quite meet transfusion criteria with a hemoglobin of 7.2 and is hemodynamically PATIENT'S NAME: KAVITA CASTILLO [facility] AGE: 86 Y [address] ROOM: [place] [address] LOCATION: [facility] ADMIT DATE: 07/24/2016 ER/Outpatient Report DISCHARGE DATE: FAMILY PHYSICIAN: Rinku Dong MD ATTENDING PHYSICIAN: Yoyl VILLANUEVA, but type and screen was completed. Regarding the blood around the catheter, recommend discontinuation of Plavix and assessment by Neurosurgery. Dr. Combs is aware and will evaluate the patient in the hospital. She will be admitted without further issues. I did perform some basic oral cares at bedside. All questions were answered for the family to the best of my ability. She was admitted to the Neurologic Trauma Unit under the care of Dr. Villanueva, hospitalist. MD BETSEY HA/bernarda /[id number] d: 07/24/161931 t: 07/25/16 0814, OUTPATIENT REPORT
--- NOTE | ~2016-07-24 | CON ---
PATIENT'S NAME: KAVITA CASTILLO [facility] AGE: 86 Y [address] ROOM: [place] [address] LOCATION: [facility] ADMIT DATE: 07/24/2016 Consultation DISCHARGE DATE: FAMILY PHYSICIAN: Rinku Dong MD ATTENDING PHYSICIAN: Yoly DASILVA REFERRING PHYSICIAN: Lois Combs MD HISTORY OF PRESENT ILLNESS: This is an 86-year-old female who was seen for history of upper GI bleeding. She has a history of stroke, hydrocephalus, coronary artery disease, dementia hypertension, hyperlipidemia, and dysphagia, who presented from the group home being unresponsive with fever. She has a history of hydrocephalus and she was recently admitted to the hospital at [facility] for a KENNEL KEEPER shunt placement. She was discharged back to her group home at [facility]. She has been doing fairly well until yesterday when she was found to have poor responsiveness and was brought by the granddaughter to the emergency room. Granddaughter is a power of transfer station operator. In the emergency room, her hemoglobin was 7.2 g and she had been passing melenic stools. PAST MEDICAL HISTORY: 1. Stroke. 2. Hydrocephalus. 3. Coronary artery disease. She was on Plavix. 4. Dementia. 5. Hypertension. 6. Hyperlipidemia. 7. Dysphagia. PAST SURGICAL HISTORY: KENNEL KEEPER shunt placement. SOCIAL HISTORY: The patient lives at [facility]. MEDICATIONS: Current medications were reconciled as per MAR. REVIEW OF SYSTEMS: She is noncommunicative, unable to obtain review of systems. PHYSICAL EXAMINATION: VITAL SIGNS: Revealed her pulse was 56 per minute, respiration was 12 to 18 per minute, temperature 98 degree Fahrenheit, blood pressure was 152/70. HEAD: Examination of head, normocephalic and atraumatic. NEURO: She does not communicate but does respond to painful stimulations. Cranial nerves cannot be tested completely. She is moving both upper and PATIENT'S NAME: KAVITA CASTILLO [facility] AGE: 86 Y [address] ROOM: [place] [address] LOCATION: [facility] ADMIT DATE: 07/24/2016 Consultation DISCHARGE DATE: FAMILY PHYSICIAN: Rinku Dong MD ATTENDING PHYSICIAN: Yoly DASILVA lower extremities. ABDOMEN: Examination of abdomen, soft, nontender. There is hepatosplenomegaly. No ascites. Bowel sounds are active. GENITOURINARY: Bladder is not full. LABORATORY DATA: Shows hemoglobin was 7.2, it had dropped from 11.3. She is planned to be given 2 units of blood. Platelet count is 263. Prothrombin time is 11.7 and INR is 1.1. ESR 33. Potassium is 3.5, sodium is 158, chloride 128, glucose 118, BUN 45, creatinine is 0.9, albumin is 2.7. ASSESSMENT: This lady has dropped her hemoglobin from 11 g to. 7.2 g within last one month. It is 11.5 on July 17 and on June 07, it was 13.6. She has been on Plavix and has had melena, and therefore, I suspect that she had upper GI bleeding. RECOMMENDATION: 1. Start on proton pump inhibitors IV. 2. Plan to do endoscopy for evaluation of source of bleeding. 3. She should be avoided for nonsteroidal anti-inflammatory drugs. 4. Plavix was stopped. We will go ahead and plan to do endoscopy for Wednesday. We appreciate sharing care of this patient. ROBERTO BATES MD AK/modl /[id number] CC: Rinku Dong MD d: 07/25/16 1423 t: 07/28/16 0844, CONSULTATION REPORT
[~2016-07-24 09:55] MED LIST changes: -KEPPRA500 MG PO; -PERCOCET 5-3251 EACH PO; -PREVACID30 M1 PO; -PROTONIX40 MG PO; -TYLENOL LI325 MG/10. PO
[2016-07-24 10:29] LABS: BILIRUBIN URINE NEGATIVE (NEGATIVE); BLOOD URINE 50 /UL (NEGATIVE); COLOR URINE YELLOW (YELLOW); GLUCOSE URINE NEGATIVE (NEGATIVE); KETONE URINE NEGATIVE (NEGATIVE); LEUKOCYTES URINE 500 /UL (NEGATIVE); NITRITE URINE POSITIVE (NEGATIVE); PROTEIN URINE 30 mg/dL (NEGATIVE); SPEC GRAVITY URINE 1.015 (1.003-1.035); TURBIDITY URINE 1+ (CLEAR); UROBILINOGEN URINE NORMAL (NORMAL)
[2016-07-24 10:35] LABS: BASOPHIL % 0.2 %; EOSINOPHIL # 0.1 K/uL (0.0-0.5); EOSINOPHIL % 0.5 %; IMMATURE GRANULOCYTE # 0.3 K/uL (0.0-0.3); IMMATURE GRANULOCYTE % 2.4 %; LYMPHOCYTE # 1.1 K/uL (0.8-4.0); LYMPHOCYTE % 9.4 %; MONOCYTE % 9.1 %; MPV 11.3 fl (9.4-12.4); NEUTROPHIL # (ANC) 8.8 K/uL (1.8-7.8); NEUTROPHIL % 78.4 %; NRBC % 0.7 /100WBC (0-0.00); WBC 11.2 K/uL (4.0-11.0)
[2016-07-24 10:38] LABS: HEMATOCRIT 21.7 % (30.0-46.0); HEMOGLOBIN 7.2 g/dL (10.0-15.0); MCHC 33.2 gm/dL (32.0-36.5); MCV 96.4 fl (83.0-98.0); PLATELET COUNT 263 K/uL (150-450); RBC 2.25 M/uL (3.00-5.00); RDW-CV 13.5 % (11.9-14.6)
[2016-07-24 10:39] LABS: RBC URINE 0-2 #/HPF (NEGATIVE); WBC URINE PACKED FIELD #/HPF (NEGATIVE)
[2016-07-24 10:40] LABS: BACTERIA URINE MANY (NEGATIVE); EPITHELIAL URINE 0-2 #/HPF (NEGATIVE); WBC CLUMPS URINE MANY (NEGATIVE)
[2016-07-24 10:49] LABS: INR - (THERAPEUTIC) 1.11 (0.92-1.07); PROTIME 11.7 SECONDS (9.8-11.4); PTT 22 SECONDS (25-32)
[2016-07-24 11:04] LABS: ALBUMIN 2.9 gm/dL (3.5-5.0); CALCIUM 9.5 mg/dL (8.5-10.5); CREATININE 1.1 mg/dL (0.5-1.1); POTASSIUM 3.4 mMol/L (3.7-5.1); TOTAL PROTEIN 6.2 g/dL (6.0-8.4)
[2016-07-24 11:05] LABS: ANION GAP 12.4 (10.0-19.0); TOTAL BILIRUBIN 0.5 mg/dL (0.0-1.5)
[2016-07-24 18:55] LABS: ALBUMIN 2.7 gm/dL (3.5-5.0); CALCIUM 8.9 mg/dL (8.5-10.5); CREATININE 0.9 mg/dL (0.5-1.1); POTASSIUM 3.5 mMol/L (3.7-5.1); TOTAL BILIRUBIN 0.6 mg/dL (0.0-1.5); TOTAL PROTEIN 6.1 g/dL (6.0-8.4)
[2016-07-24 18:56] LABS: ANION GAP 12.5 (10.0-19.0)
[2016-07-25 00:26] LABS: HEMATOCRIT 32.7 % (30.0-46.0); HEMOGLOBIN 11.3 g/dL (10.0-15.0)
[2016-07-25 11:37] LABS: HEMATOCRIT 32.2 % (30.0-46.0); HEMOGLOBIN 11.1 g/dL (10.0-15.0)
[2016-07-25 11:38] LABS: ALBUMIN 2.8 gm/dL (3.5-5.0); ALK PHOS 62 IU/L (33-138); ALT 28 IU/L (12-78); AST 28 IU/L (10-40); BLOOD UREA NITROGEN 34 mg/dL (6-24); CALCIUM 8.4 mg/dL (8.5-10.5); CO2 21 mMol/L (22-32); CREATININE 0.8 mg/dL (0.5-1.1); ESTIMATED GFR (MDRD EQUATION) > 60; POTASSIUM 3.3 mMol/L (3.7-5.1); TOTAL BILIRUBIN 0.7 mg/dL (0.0-1.5); TOTAL PROTEIN 6.1 g/dL (6.0-8.4)
[2016-07-25 11:39] LABS: ANION GAP 14.3 (10.0-19.0); CHLORIDE 124 mMol/L (96-110); SODIUM 156 mMol/L (135-145)
[2016-07-25 16:37] LABS: HEMATOCRIT 28.5 % (30.0-46.0); HEMOGLOBIN 9.7 g/dL (10.0-15.0)
[2016-07-25 23:56] LABS: HEMATOCRIT 27.9 % (30.0-46.0); HEMOGLOBIN 9.8 g/dL (10.0-15.0)
[2016-07-26 05:49] LABS: BASOPHIL % 0.2 %; EOSINOPHIL # 0.3 K/uL (0.0-0.5); EOSINOPHIL % 2.7 %; IMMATURE GRANULOCYTE # 0.3 K/uL (0.0-0.3); IMMATURE GRANULOCYTE % 2.4 %; LYMPHOCYTE # 1.2 K/uL (0.8-4.0); LYMPHOCYTE % 10.8 %; MCH 31.8 pg (27.0-34.0); MCHC 34.5 gm/dL (32.0-36.5); MCV 92.4 fl (83.0-98.0); MONOCYTE # 0.9 K/uL (0.0-1.0); MONOCYTE % 8.1 %; NEUTROPHIL # (ANC) 8.2 K/uL (1.8-7.8); NEUTROPHIL % 75.8 %; NRBC % 0.6 /100WBC (0-0.00); PLATELET COUNT 238 K/uL (150-450); RDW-CV 14.2 % (11.9-14.6); WBC 10.8 K/uL (4.0-11.0)
[2016-07-26 05:50] LABS: RBC 3.14 M/uL (3.00-5.00)
[2016-07-26 06:07] LABS: ALBUMIN 2.6 gm/dL (3.5-5.0); ALK PHOS 60 IU/L (33-138); ALT 26 IU/L (12-78); AST 24 IU/L (10-40); BLOOD UREA NITROGEN 24 mg/dL (6-24); CALCIUM 7.9 mg/dL (8.5-10.5); CHLORIDE 117 mMol/L (96-110); CO2 22 mMol/L (22-32); CREATININE 0.8 mg/dL (0.5-1.1); ESTIMATED GFR (MDRD EQUATION) > 60; SODIUM 149 mMol/L (135-145); TOTAL BILIRUBIN 0.8 mg/dL (0.0-1.5); TOTAL PROTEIN 5.8 g/dL (6.0-8.4)
[2016-07-27 05:51] LABS: ALBUMIN 2.7 gm/dL (3.5-5.0); ALK PHOS 61 IU/L (33-138); ALT 24 IU/L (12-78); AST 21 IU/L (10-40); BLOOD UREA NITROGEN 12 mg/dL (6-24); CO2 18 mMol/L (22-32); CREATININE 0.6 mg/dL (0.5-1.1); ESTIMATED GFR (MDRD EQUATION) > 60; POTASSIUM 3.5 mMol/L (3.7-5.1); TOTAL BILIRUBIN 0.7 mg/dL (0.0-1.5)
[2016-07-27 05:52] LABS: ANION GAP 15.5 (10.0-19.0); CHLORIDE 117 mMol/L (96-110); SODIUM 147 mMol/L (135-145)
[2016-07-28 05:50] LABS: HEMATOCRIT 31.8 % (30.0-46.0); HEMOGLOBIN 10.9 g/dL (10.0-15.0)
[2016-07-28 06:10] LABS: ALBUMIN 2.6 gm/dL (3.5-5.0); ALK PHOS 66 IU/L (33-138); ALT 22 IU/L (12-78); ANION GAP 14.4 (10.0-19.0); AST 18 IU/L (10-40); BLOOD UREA NITROGEN 8 mg/dL (6-24); CALCIUM 8.3 mg/dL (8.5-10.5); CHLORIDE 114 mMol/L (96-110); CO2 21 mMol/L (22-32); CREATININE 0.7 mg/dL (0.5-1.1); ESTIMATED GFR (MDRD EQUATION) > 60; POTASSIUM 3.4 mMol/L (3.7-5.1); TOTAL BILIRUBIN 0.6 mg/dL (0.0-1.5); TOTAL PROTEIN 6.2 g/dL (6.0-8.4)
[2016-07-28 06:13] LABS: SODIUM 146 mMol/L (135-145)
[2016-07-28 06:18] LABS: MAGNESIUM 2.2 mg/dL (1.8-2.6); PHOSPHORUS 4.5 mg/dL (2.5-4.9)
[2016-07-29 06:20] LABS: ANION GAP 11.2 (10.0-19.0); BLOOD UREA NITROGEN 8 mg/dL (6-24); CALCIUM 8.6 mg/dL (8.5-10.5); CHLORIDE 115 mMol/L (96-110); CO2 24 mMol/L (22-32); CREATININE 0.7 mg/dL (0.5-1.1); ESTIMATED GFR (MDRD EQUATION) > 60; POTASSIUM 4.2 mMol/L (3.7-5.1)
[2016-07-29 06:24] LABS: HEMATOCRIT 35.8 % (30.0-46.0); HEMOGLOBIN 12.3 g/dL (10.0-15.0); SODIUM 146 mMol/L (135-145)
[2016-07-30 06:08] LABS: ANION GAP 12.7 (10.0-19.0); BLOOD UREA NITROGEN 8 mg/dL (6-24); CALCIUM 8.8 mg/dL (8.5-10.5); CHLORIDE 110 mMol/L (96-110); CO2 24 mMol/L (22-32); CREATININE 0.7 mg/dL (0.5-1.1); ESTIMATED GFR (MDRD EQUATION) > 60; POTASSIUM 3.7 mMol/L (3.7-5.1); SODIUM 143 mMol/L (135-145)
== END 2016-07-30 11:50 | DRG 871 ==
LOC: GMED 09:55 → GNTU 13:08 → GMSU 07-26 16:00
PROVIDERS: Emergency Medicine; Hospitalist; Physician Assistant; ADMIT Internal Medicine
DX: A41.9 Sepsis, unspecified organism (principal); E43 Unspecified severe protein-calorie malnutrition; I61.9 Nontraumatic intracerebral hemorrhage, unspecified; G93.40 Encephalopathy, unspecified; K92.2 Gastrointestinal hemorrhage, unspecified; E87.0 Hyperosmolality and hypernatremia; G30.9 Alzheimer's disease, unspecified; N39.0 Urinary tract infection, site not specified; F02.80 Dementia in other diseases classified elsewhere, unspecified severity, without behavioral disturbance, psychotic disturbance, mood disturbance, and anxiety; D62 Acute posthemorrhagic anemia; E87.1 Hypo-osmolality and hyponatremia; E86.0 Dehydration; I10 Essential (primary) hypertension; R65.20 Severe sepsis without septic shock; Z66 Do not resuscitate; Z86.69 Personal history of other diseases of the nervous system and sense organs; Z86.73 Personal history of transient ischemic attack (TIA), and cerebral infarction without residual deficits; Z98.2 Presence of cerebrospinal fluid drainage device; B96.20 Unspecified Escherichia coli [E. coli] as the cause of diseases classified elsewhere; R54 Age-related physical debility; E87.6 Hypokalemia; R13.10 Dysphagia, unspecified; Z68.20 Body mass index [BMI] 20.0-20.9, adult; Z95.5 Presence of coronary angioplasty implant and graft
CPT/HCPCS: C9113; J0456; J0696; J1953; J1956; J3480; J7030; J7040; J7050; J7060; P9016

== ENCOUNTER → 2016-07-24 | Outpatient (CLI) | payer MEDICARE, OTHER, MEDICAID ==
[~2016-07-24] MED LIST changes: +KEPPRA500 MG PO; +PERCOCET 5-3251 EACH PO; +PREVACID30 M1 PO; +PROTONIX40 MG PO; +TYLENOL LI325 MG/10. PO
== END | disposition disaster alternative care site (69) ==
LOC: GAMB 09:38
DX: R41.82 Altered mental status, unspecified (principal); H57.13 Ocular pain, bilateral; R50.9 Fever, unspecified; R25.1 Tremor, unspecified; Z97.8 Presence of other specified devices; Z79.02 Long term (current) use of antithrombotics/antiplatelets; Z79.899 Other long term (current) drug therapy; Z88.6 Allergy status to analgesic agent; Z88.5 Allergy status to narcotic agent; Z88.0 Allergy status to penicillin; Z88.8 Allergy status to other drugs, medicaments and biological substances
CPT/HCPCS: A0425; A0429; C9113

== ENCOUNTER 2016-08-03 16:30 | Inpatient (IN) | payer MEDICARE, OTHER, MEDICAID ==
[~2016-08-03] VITALS: Ht 157.5 cm; Wt 61.4 kg
--- NOTE | ~2016-08-03 | HP ---
PATIENT'S NAME: KAVITA CASTILLO [facility] AGE: 86 Y [address] ROOM: [place] [address] [facility] ADMIT DATE: 08/03/2016 History & Physical DISCHARGE DATE: FAMILY PHYSICIAN: Rinku Dong MD ATTENDING PHYSICIAN: ALETHEA SCOTT DATE OF SERVICE: CHIEF COMPLAINT: Acute encephalopathy. HISTORY OF PRESENT ILLNESS: This is an 86-year-old female who presents from local long term after she was found to have a worsening of mental status and confusion. The patient of note was discharged from the hospital just a few days ago after presenting with acute encephalopathy; hypernatremia; and hydrocephalus, status post PLASTERING SUPERVISOR shunt placement during her hospitalization. Per report, the patient had been fairly doing well until 1 or 2 days ago where she appeared to be more confused and incoherent. The patient was also reportedly noted to have a low-grade temperature of 100.2 prior to presentation as well. The patient during my evaluation is awake, however, confused, and does not follow any command. Per patient's family by bedside that I talked to, about 3 to 4 days ago, the patient was able to actually engage in normal conversation and had been doing fairly well and this is a significant change from that since then. Otherwise, there are no reports of any complaints of headache, dizziness, lightheadedness, or unilateral weakness. No reports of recent changes in her medications either. Dictation Ends Here MD ROHIT MOYA/modshaquille /[id number] D: 049 T: 421 HISTORY & PHYSICAL
--- NOTE | ~2016-08-03 | NDGEN ---
PATIENT'S NAME: KAVITA RIVERA [facility] AGE: 86 Y [address] ROOM: [address] [address] LOCATION: [facility] ADMIT DATE: 08/03/2016 Neurodiagnostics DISCHARGE DATE: FAMILY PHYSICIAN: Rinku Dong MD ATTENDING PHYSICIAN: ALETHEA SCOTT PROCEDURE: ELECTROENCEPHALOGRAM DATE OF PROCEDURE: 08/06/2016 TIME: 9:38 a.m. HISTORY: Kavita Rivera who is an 86-year-old female patient. The patient has a history of severe dementia and a history of possible normal pressure hydrocephalus. She was delirious at the time of delirious at the time of this study and was very sleepy. The general background rhythm revealed a slow but normal amplitude EMG with a 6 to 7 hertz status cycle with amplitudes of 25 to 40 microvolts. There was no asymmetry throughout the whole study. Photic stimulation did not reveal any photic drive abnormalities and no epileptiform features were seen and no seizures recorded. IMPRESSION: There was generalized slowing in the background rhythm consistent with likely some generalized atrophy of the brain known in this patient as well as the patient being sleepy at the time of this study. There was no evidence of any epileptiform features seen and no seizures recorded. MD ADDISON HARRINGTON/bernarda /[id number] dtt: 08/13/16 1326 , MICHAEL FRANKLIN dtd: 08/07/16 1732
--- NOTE | ~2016-08-03 | ER ---
PATIENT'S NAME: KAVITA CASTILLO [facility] AGE: 86 Y [address] ROOM: [place] [address] LOCATION: [facility] ADMIT DATE: 08/03/2016 ER/Outpatient Report DISCHARGE DATE: FAMILY PHYSICIAN: Rinku Dong MD ATTENDING PHYSICIAN: ALETHEA GRANDA Time of Arrival: 1630 hours. Time of Evaluation: 1630 hours. CHIEF COMPLAINT: Altered mental status. HISTORY OF PRESENT ILLNESS: The patient is 86-year-old female, who presents to emergency department today with chief complaint of altered mental status. The patient is currently in a fci. She is accompanied by her granddaughter. Granddaughter reports that the patient has been having waxing and waning type symptoms. She will be doing good for a little bit then gets worse. Her granddaughter also reports that she has been unable to swallow and this gotten worse. Actually, a swallow study is scheduled for tomorrow. The patient does have a history of hydrocephalus with TREE CLIMBER shunt a few weeks ago. Granddaughter reports she has never actually fully got back to her previous self. The patient was found to have a temperature of 100.2. Denies any nausea or vomiting. No diarrhea or constipation. PAST MEDICAL HISTORY: Stroke, hydrocephalus, coronary artery disease, dementia, hypertension, dyslipidemia, dysphagia, UTI, anemia. PAST SURGICAL HISTORY: TREE CLIMBER shunt. SOCIAL HISTORY: The patient is a resident of [facility]. Denies any tobacco, alcohol or illicit drug use. ALLERGIES: PENICILLIN, CELEBREX, CODEINE, CORTISONE, DIPHENHYDRAMINE, CARTER INHIBITORS, ARBS, CORTICOSTEROID, NONSTEROIDALS AND SULFA. MEDICATIONS: Please see list. PRIMARY CARE DOCTOR: Rinku Dong MD. PATIENT'S NAME: KAVITA CASTILLO [facility] AGE: 86 Y [address] ROOM: [place] [address] LOCATION: [facility] ADMIT DATE: 08/03/2016 ER/Outpatient Report DISCHARGE DATE: FAMILY PHYSICIAN: Rinku Dong MD ATTENDING PHYSICIAN: ALETHEA GRANDA REVIEW OF SYSTEMS: All systems are reviewed by myself and negative with the exception of those discussed in HPI and past medical history. PHYSICAL EXAMINATION: VITAL SIGNS: Weight 55.2 kg. Blood pressure 128/60, pulse 74, respiratory rate 18, temperature 100, and oxygen saturation 94% on room air. GENERAL: The patient is 86-year-old female, appears stated age. She is initially somnolent. Closes her eyes tight when attempting to examine, will not answer questions. HEENT: The patient has a surgical incisions that are clean, dry, and intact. Eyes 2 mm, round and reactive to light. Nares are patent bilaterally. TMs are clear. Oropharynx with significantly dry oral mucosa. CARDIOVASCULAR: Regular rate and rhythm. LUNGS: Clear to auscultation bilaterally. ABDOMEN: Soft, nontender, and nondistended. No rebound, rigidity, or guarding. MUSCULOSKELETAL: The patient moves all 4 extremities. SKIN: Warm and dry. NEUROLOGICAL: The patient is somnolent. Will follow commands. LABORATORY DATA AND X-RAYS: UA; 100 leukocyte esterase, 15 protein, 10 blood, 10-20 wbc's, 5-10 epithelials, rare bacteria. CMP is unremarkable. LFTs are unremarkable. Venous blood gas; 7.50/38/98/30/6.1. Lactate is normal. CBC unremarkable except for hemoglobin 9.5, hematocrit 28.8. Chest x-ray shows no acute process. Coags 1.15. PTT is normal. CK, CK-MB and troponin are normal. Free T4 is normal. ProBNP is 1106. TSH is normal. Procalcitonin 0.08. CT scan of the brain is obtained. I have discussed the results with the radiologist. This was compared to the scan on 07/25/2016. The shunt catheter appears stable. The ventricular volume is stable. The blood surrounding the catheter has improved as well as the air. Overall, improved. I looked at the CT scan of the brain. EKG is obtained, interpreted by myself, shows sinus rhythm with a rate of 71, MD interval 225. No ST elevation, ST depression, or T-wave inversions are noted. IMPRESSION: 1. Acute encephalopathy. 2. Difficulty swallowing. 3. Acute blood loss anemia. 4. SIRS. 5. Initial visit. PATIENT'S NAME: KAVITA CASTILLO [facility] AGE: 86 Y [address] ROOM: [place] [address] [facility] AD[facility] DATE: 08/03/2016 ER/Outpatient Report DISCHARGE DATE: FAMILY PHYSICIAN: Rinku Dong MD ATTENDING PHYSICIAN: ALETHEA GRANDA EMERGENCY DEPARTMENT COURSE: The patient was brought back to the examination room. Seen and evaluated by myself. IV was established. Laboratory analysis and imaging are obtained as described above. The patient was given normal saline at 30 mL per kg bolus. Workup is obtained with the patient's recent hospital admission and recent discontinuation of Levaquin for urinary tract infection. We did initiate Azactam 2 g IV as well as vancomycin 1 g IV. I have discussed results with the patient's granddaughter. The patient has actually improved now in the emergency department. She is answering questions. She is alert to person and place, not time. Apparently, this is more towards her normal since the shunt. I have recommended admission to the hospital for further evaluation, treatment, and management. The patient's granddaughter is agreeable. I have contacted Dr. Granda with the Hospitalist Service who does agree to accept the patient for further evaluation, treatment, and management. I have discussed the case with Dr. Combs as well, the patient's neurosurgeon. DISPOSITION: The patient is admitted under the care of the Hospitalist Service, Dr. Granda in stable condition. DO MARCELLA JESUS/modl /[id number] d: 08/04/16700 t: 08/05/16 0910, OUTPATIENT REPORT
--- NOTE | ~2016-08-03 | DS ---
PATIENT'S NAME: KAVITA CASTILLO [facility] AGE: 86 Y [address] ROOM: [place] [address] [place] [facility] [place] DATE: 08/03/2016 Discharge Summary DISCHARGE DATE: 08/17/2016 FAMILY PHYSICIAN: Rinku Dong MD ATTENDING PHYSICIAN: Marko Granda PRIMARY DIAGNOSES: Includes: 1. Sepsis of unknown source, questionable meningitis, probable secondary to ventriculoperitoneal shunt, not confirmed. 2. Acute encephalopathy. 3. Dysphagia. 4. Alzheimer's dementia. 5. Physical deconditioning. 6. Coronary artery disease. 7. Nonsustained ventricular tachycardia. 8. Left pelvic cyst. PRINCIPAL PROCEDURES DONE FOR THE PATIENT: None was indicated. LABORATORY DATA: On admission, WBC was 7.2, prior to discharge was 8.2, was stable throughout hospital stay, H and H on admission was 9.5/28.2, was also stable throughout the hospital stay, prior to discharge was 9.8/30.7, and platelet was stable throughout the hospital stay, on discharge it was 342. On admission, creatinine was 0.7, creatinine was also stable throughout the hospital stay. On admission, sodium was 144, was also stable throughout hospital stay, prior to discharge was 142, creatinine prior to discharge was 0.6, potassium was 3.9 on admission, was repleted couple of multiple times and prior to discharge was 3.9, bicarb was stable throughout the hospital stay, BUN as well was stable, phosphorus on admission was 1.9, was repleted, prior to discharge was 2.6, albumin on admission was 2.3, prior to discharge was 1.9, magnesium was stable throughout the hospital stay. Liver function tests were within normal limit throughout the hospital stay. Vancomycin level highest level obtained was 19.8. UA leukocytes 100, nitrite was negative, wbc was 10 to 20, bacteria was rare, TSH was 2.90, prolactin was 12.2, and procalcitonin on admission was 0.08. MICROBIOLOGY: Urine culture was no growth at 2 days. Blood culture x2 sets, no growth x5 days. RADIOLOGY: Chest x-ray normal chest. CT of the head shunt catheter placed by right posterior parietal approach in place with stable positioning, no acute hemorrhage identified on the current study, stable ventricular volume, generalized atrophic changes and white matter small vessel ischemic changes. Modified barium swallow. Poor oral control with difficulty in bolus formation and propulsion delay in swallowing initiation. No aspiration observed during PATIENT'S NAME: KAVITA CASTILLO [facility] AGE: 86 Y [address] ROOM: [id number] [place], [place] [address] LOCATION: [facility] [place] AD[place] DATE: 08/03/2016 Discharge Summary DISCHARGE DATE: 08/17/2016 FAMILY PHYSICIAN: Rinku Dong MD ATTENDING PHYSICIAN: Marko Granda modified barium swallow study. X-ray of both hips, no fracture or dislocation identified at the right hip on frontal radiograph study. No fracture or dislocation identified at the left hip on the frontal radiographic image. X- rays of both shoulders, no fracture or dislocation identified at the right shoulder, degenerative changes at the acromioclavicular joint. Findings normal bone and soft tissue structures. No fracture or dislocation on x-ray of the left shoulder. CT abdomen and pelvis with contrast, no abscess collection identified in the abdomen or pelvis. Overall, volume of fecal matter in the normal range with no findings of bowel obstruction. Shunt catheter tubing and Butler catheter in place. Oval 3 cm fluid collection at the left-side of the patient's pelvis. This could reflect a cystic mass ovarian origin. Dependent atelectasis and scarring at the lung bases. CT cervical with contrast, extensive degenerative changes at the cervical spine, posterior subluxation of C4 relative to C3 with an anterior subluxation of C5, relative to C6. No acute bone fracture identified at the cervical spine. KUB for Dobbhoff placement feeding tube extending below the left hemidiaphragm with distal portion in the stomach. Ultrasound of the pelvis is reported as cystic collection at the left-side of the pelvis visualized on CT imaging also seen on ultrasound, ultrasound measurements 3.7 x 3.1 x 4.8 cm. Echocardiogram, ejection fraction 60%, left ventricle is normal in size, grade 1 diastolic dysfunction. HOSPITAL COURSE: For history of present illness, please take a look at the H and P, which was done by Dr. Granda. The patient was admitted to Progressive Care Unit for recurrent acute encephalopathy given the fact that the patient was recently discharged from [facility] with the same presentation of acute encephalopathy and was successfully treated for UTI. Sepsis was the primary etiology; however, the sepsis workup which was done essentially was negative; however, given the fact that the patient has an indwelling WOOD MACHINIST shunt, concern was also probable meningitis; however, on admission, the patient's family and the POA did not agree to have a lumbar puncture done; so, the patient was empirically started on meningitic doses of antibiotics of vancomycin and Fortaz. For the 1st four days of the patient's hospital stay, she was completely out of it, was lethargic, would not open her eyes, would moan to her names, but was not doing much other than that. From the first day of the hospital stay, we had an extensive discussion with the patient's family and the POA regarding method of feeding; and at an earlier point, they rejected having tube feeding or any other form of artificial feeding particularly the POA. There was a lot of family contention as to what exactly they wanted for the patient as regarding the management, but ultimately it was the POA who is the granddaughter who ultimately made the final decision about the treatment. However, surprisingly, after the 4th day of the hospital stay, the patient became more alert, awake, and at this time, family ultimately agreed to having a tube feeding done to give her some more strength; so, she was started on tube feeding and she did also get a modified PATIENT'S NAME: KAVITA CASTILLO [facility] AGE: 86 Y [address] ROOM: [place] [address] LOCATION: [facility] [place]MIT DATE: 08/03/2016 Discharge Summary DISCHARGE DATE: 08/17/2016 FAMILY PHYSICIAN: Rinku Dong MD ATTENDING PHYSICIAN: Marko Granda barium swallow done the next day of the hospital stay, which did not show any aspiration; however, it did show that the patient was not able to form food bolus and also initiate swallowing. The patient was continued on the antibiotics and completed 14 days of IV antibiotics meningitic doses even though the meningitis was not confirmed with an LP. With progression in her hospital stay, her mentation improved and it ultimately returned to her baseline. She was alert, awake, mumbling words, which were difficult to understand, and also she started physical therapy, occupational therapy, and she was able to walk at least 15 feet total per day. She was not able to eat that much orally, we combined both some oral food intake as well as tube feeding. Ultimately, the POA decided that the patient would not want any form of artificial feeding to be done such as a PEG tube; so, this was not done in the patient and we also did get Palliative Care on-board as well and after discussing with the family they felt that it will be good for the patient to go on hospice care at [facility]. The patient also did get a Neurology consult at the earlier date of admission for acute encephalopathy and felt probably that this may be due to delirium. Ultimately, the patient's mentation returned to baseline with her advanced dementia and she was discharged back to [facility] to hospice. By August 08, the patient also did develop some nonsustained ventricular tachycardia and also some aberrant conduction for which Cardiology was consulted and the patient was started on amiodarone p.o., which helped to control her nonsustained v-tach. MEDICATIONS ON DISCHARGE: Includes: 1. Prevacid 30 mg p.o. twice daily. 2. Plavix 75 mg p.o. daily. 3. Melatonin 5 mg p.o. q.h.s. 4. Amiodarone 200 mg p.o. daily. 5. Metoprolol 12.5 mg twice daily, dose change. 6. Tylenol liquid 650 mg p.o. 3 times daily. 7. Tylenol liquid 650 mg p.o. q.4 h. p.r.n. 8. Dulcolax 10 mg rectally everyday p.r.n. 9. Milk of magnesia 30 mL p.o. daily p.r.n. 10. Pepto-Bismol 5-10 mL p.o. q.6 h. p.r.n. 11. Pravachol 40 mg p.o. q.h.s. 12. Aricept 10 mg p.o. daily. 13. Florastor 250 mg p.o. b.i.d. for 5 days. Discharge time spent on this patient includes 35 minutes, which included coordinating with discharge planning with care management. GRIFFIN MERCADO MD PATIENT'S NAME: KAVITA CASTILLO [facility] AGE: 86 Y [address] ROOM: [place] [address] [place]: [facility] [place]MIT DATE: 08/03/2016 Discharge Summary DISCHARGE DATE: 08/17/2016 FAMILY PHYSICIAN: Rinku Dong MD ATTENDING PHYSICIAN: Marko Granda /[id number] d: 08/18/16 0009 t: 08/23/16 1419, DISCHARGE SUMMARY
--- NOTE | ~2016-08-03 | HP ---
[facility]GE[facility] 86 Y [address] ROOM: [place] [address] LOCATION: [facility] ADMIT DATE: 08/03/2016 History & Physical DISCHARGE DATE: FAMILY PHYSICIAN: Rinku Dong MD ATTENDING PHYSICIAN: ALETHEA SCOTT DATE OF SERVICE: ADDENDUM: PAST MEDICAL HISTORY: 1. Hydrocephalus. 2. Hypernatremia. 3. CKD 2. 4. Dementia. 5. Coronary artery disease. 6. CVA. 7. Dysphagia. FAMILY HISTORY: This was unable to be obtained since the patient with a history of dementia, and current mental state does not allow for questions to be answered. SOCIAL HISTORY: The patient is a resident of [facility]. REVIEW OF SYSTEMS: A complete review of systems was not able to be collected due to the patient's mental status at presentation. PHYSICAL EXAMINATION: VITAL SIGNS: Temperature was 100.3 outside, blood pressure was 136/72, heart rate was 22, and saturating 95% on room air. GENERAL APPEARANCE: She opens eyes; however, does not follow commands, and is sitting in bed somnolent. HEENT: The patient has dry mucosal membranes. No scleral icterus. Conjunctival pallor was noted. SKIN: Without rash or lesions. HEART: S1 and S2. Regular rate and rhythm. CHEST: Clear to auscultation bilaterally. ABDOMEN: Soft, nontender, and nondistended. Positive bowel sounds. NEUROLOGICAL: Grossly nonfocal, but unable to do full exam due to the patient's mental status. MUSCULOSKELETAL: No joint redness, swelling, or tenderness was noted. PATIENT'S NAME: KAVITA CASTILLO [facility] AGE: 86 Y [address] ROOM: [place] [address] LOCATION: [facility] ADMIT DATE: 08/03/2016 History & Physical DISCHARGE DATE: FAMILY PHYSICIAN: Rinku Dong MD ATTENDING PHYSICIAN: ALETHEA SCOTT LABORATORY DATA: Reviewed. ASSESSMENT AND PLAN: 1. Systemic inflammatory response syndrome, unclear etiology, but at this point, I have a little suspicion for meningitis as the patient recently had had a SENIOR DB2 SYSTEMS PROGRAMMER shunt placed, and there is a chance it can be explained by meningitis. However, after discussing with the patient's family, they would not want to pursue doing an LP right at this minute. In the meantime, we will go ahead and treat her for a procedure-related possible meningitis with vancomycin and ceftazidime, and watch clinically. Plan is if the patient's mental status deteriorates or it does not improve, LP as an option should be discussed again and family agrees to this plan, but at this time, elected to do less. 2. Acute encephalopathy, this is likely metabolic and some relation to some infection source. Infection workup is ongoing. 3. Dysphagia. We will keep the patient n.p.o. and have Speech evaluate the patient. 4. Hydrocephalus, status post SENIOR DB2 SYSTEMS PROGRAMMER shunt placement. Imaging had been reviewed by Dr. Combs, and I have spoken to him over the phone as well and he agrees with conservatively managing her presentation. It does not appear to have any relation to the SENIOR DB2 SYSTEMS PROGRAMMER shunt. 5. Coronary artery disease. 6. Dementia. MD ROHIT MOYA/[place] /[id number] D: T: [id number] HISTORY & PHYSICAL
--- NOTE | ~2016-08-03 | CON ---
PATIENT'S NAME: KAVITA CASTILLO [facility] AGE: 86 Y [address] ROOM: [place] [address] LOCATION: [facility] ADMIT DATE: 08/03/2016 Consultation DISCHARGE DATE: FAMILY PHYSICIAN: Rinku Dong MD ATTENDING PHYSICIAN: ALETHEA SCOTT DATE OF CONSULTATION: 08/08/2016 REFERRING PHYSICIAN: MICHAEL FRANKLIN MD CARDIOLOGY CONSULTATION REASON FOR CONSULTATION: Ventricular tachycardia and EKG changes. HISTORY OF PRESENT ILLNESS: This is an 86-year-old female who presented from the residential after she was found to have worsening mental status changes and confusion. She was discharged from the hospital just a few days ago with acute encephalitis, hypernatremia, and hydrocephalus. She had a POWDERED METAL SUPERVISOR shunt placed during that hospitalization. However, she started having increased confusion. About 3 to 4 days ago, she was able to actually engage in a normal conversation and did fairly well. She does carry a history of coronary artery disease as well as myocardial infarction, and has had multiple interventions to her LAD as well as the diagonal. Information was gathered from her family as she is not conversing today. The patient had not complained of any exertional chest pain or shortness of breath. Since her POWDERED METAL SUPERVISOR shunt was placed, she has not been ambulatory. There has been no report of orthopnea, PND, or increased peripheral edema. PAST MEDICAL HISTORY: 1. Coronary artery disease. 2. CVA. 3. Mild carotid disease per Doppler. 4. Frequent urinary tract infections. Last one on 03/01/2016. At that time, she had urosepsis. 5. Chronic kidney disease, stage 3. 6. Degenerative joint disease of the spine. 7. Hyperlipidemia. 8. Osteoarthritis. 9. History of polio at the age of 14. 10. Hard of hearing. Wearing bilateral hearing aids. 11. History of uterine cancer. PAST SURGICAL HISTORY: 1. On 09/20/2002, she had a 70% LAD per left heart catheterization. PATIENT'S NAME: KAVITA CASTILLO [facility] AGE: 86 Y [address] ROOM: [place] [address] LOCATION: [facility] ADMIT DATE: 08/03/2016 Consultation DISCHARGE DATE: FAMILY PHYSICIAN: Rinku Dong MD ATTENDING PHYSICIAN: ALETHEA SCOTT 2. On 10/03/2002, PTCI stent of the LAD. 3. Left heart catheterization on 09/15/2005, PTCI of LAD. 4. Left heart catheterization on 12/06/2006. 5. Balloon angioplasty with stent placement to the ostial diagonal #1. 6. On 03/09/2007, she had a laminectomy of L4. 7. Left heart catheterization on 02/20/2008 with balloon angioplasty only of the mid LAD and ostial diagonal. 8. Left heart catheterization on 08/09/2009, PTCI balloon only of the LAD. 9. Left heart catheterization on 09/18/2011, patent stents noted. 10. On 06/19/2015, lumbar puncture. 11. She has had a cholecystectomy, appendectomy, and hysterectomy as well as bilateral cataract surgery. ALLERGIES: CARTER INHIBITORS, CORTICOSTEROIDS, NSAIDS, ANTI-INFLAMMATORIES, AND PENICILLINS. HOME MEDICATIONS: 1. Acetaminophen 325 mg every 4 hours as needed. 2. Dulcolax 10 mg daily p.r.n. 3. Pepto-Bismol 5 to 10 mL every 6 hours p.r.n. 4. Plavix 75 mg p.o. indefinitely. 5. Aricept 10 mg daily. 6. Famotidine 10 mg daily. 7. Isosorbide mononitrate 30 mg tablets. She takes 1/2 b.i.d. 8. Prevacid 30 mg every day. 9. Keppra 500 mg b.i.d. 10. Milk of magnesia 30 mL p.r.n. 11. Melatonin 5 mg p.o. every bedtime. 12. Metoprolol tartrate 25 mg b.i.d. 13. Oxycodone and acetaminophen 5/325, 1 to 2 tablets p.r.n. 14. Pravachol 40 mg every bedtime. 15. Current medications in the hospital are: Nystatin ointment 30 g to the christiano area t.i.d. 16. Heparin 5000 units subcutaneous t.i.d. 17. Floranex, Bacid 1 tablet every 6 hours. 18. IV of normal saline with vancomycin 1.25 g every 18 hours. 19. Protonix IV 40 mg b.i.d. 20. Fortaz 2 g every 12 hours. 21. She is currently getting tube feedings. PHYSICAL EXAMINATION: VITAL SIGNS: She is 5 feet 2 inches tall. Her weight is 60 kg which is stable for her. Blood pressure is 164/70, her heart rate is 94 and 83 with normal sinus rhythm currently with occasional conduction changes showing sinus rhythm. Last evening, she did have a run of ventricular tachycardia. PATIENT'S NAME: KAVITA CASTILLO [facility] AGE: 86 Y [address] ROOM: [place] [address] LOCATION: [facility] ADMIT DATE: 08/03/2016 Consultation DISCHARGE DATE: FAMILY PHYSICIAN: Rinku Dong MD ATTENDING PHYSICIAN: ALETHEA SCOTT GENERAL APPEARANCE: She is alert. She has a lower jaw tremor. She does not follow commands at this time. SKIN: Warm, dry, and pink. HEENT: Pupils are equal. CARDIOVASCULAR: Regular with normal S1 and S2. ABDOMEN: Soft. Bowel sounds are present. EXTREMITIES: Show no peripheral edema. No clubbing and no cyanosis. ASSESSMENT AND PLAN: 1. Nonsustained ventricular tachycardia, and her potassium and magnesium were okay at 4.2, with magnesium of 2.1. Her EF in 2007 was good. We will check an echocardiogram looking at her EF and restart her beta- tika therapy. 2. Coronary artery disease. There is no report of exertional chest pain at this time. We would recommend restarting her Imdur when it is safe to do so. The Assessment and P, History of Present Illness, and Physical Examination are per Dr. Stapleton. We would like to thank Dr. Watson for allowing us to participate in the patient's care. GAVIOTA CUNNINGHAM APRN FOR MD KELSY SLATER/bernarda /[id number] d: 08/08/161909 t: 08/19/16813, CONSULTATION REPORT
--- NOTE | ~2016-08-03 | CON ---
PATIENT'S NAME: [facility] AGE: 86 Y [address] ROOM: [address] [place] [address] LOCATION: [facility] ADMIT DATE: 08/03/2016 Consultation DISCHARGE DATE: FAMILY PHYSICIAN: Rinku Dong MD ATTENDING PHYSICIAN: ALETHEA SCOTT DATE OF CONSULTATION: 08/04/2016 REFERRING PHYSICIAN: MICHAEL FRANKLIN MD PALLIATIVE CARE CONSULTATION LOCATION: Neurotra[facility]. REFERRING PHYSICIAN: Donnie Watson MD REASON FOR CONSULTATION: This is a Palliative Care referral for patient and family support and goals of care. HISTORY OF PRESENT ILLNESS: This 86-year-old, frail female comes in the retirement after having worsening mental status and confusion. She was recently discharged from the hospital a few days ago with acute encephalopathy, hypernatremia, and hydrocephalus status post RHIC SYSTEMS SAFETY ENGINEER shunt placement. The patient had been doing well until 1 to 2 days prior and became more confused and incoherent, and not eating, and running a low-grade fever. Currently, the patient does open eyes and say a few words. Denies any pain or discomfort. Unable to carry on a conversation. Falls back asleep easily. No discomfort noted. No nausea or vomiting or shortness of breath. PAST MEDICAL HISTORY: 1. Hydrocephalus. 2. Hypernatremia. 3. Chronic kidney disease, stage 2. 4. Dementia. 5. Coronary artery disease. 6. CVA. 7. Dysphagia. ALLERGIES: CARTER INHIBITORS, CORTICOSTEROIDS, NSAIDS, PENICILLIN, AND SULFA. CODEINE CAUSES A RASH. SULFA CAUSES A RASH. CORTISONE CAUSES HIVES. CELEBREX AND BENADRYL. PATIENT'S NAME: [facility] AGE: 86 Y [address] ROOM: [address] [place], [place] [address] LOCATION: [facility] ADMIT DATE: 08/03/2016 Consultation DISCHARGE DATE: FAMILY PHYSICIAN: Rinku Dong MD ATTENDING PHYSICIAN: ALETHEA SCOTT DICTATION ENDS HERE. VERÓNICA GAMA NP FOR MD JONATHAN GUERRA/[place] /[id number] d: 08/06/16 1725 t: 08/18/16 1944, CONSULTATION REPORT
--- NOTE | ~2016-08-03 | CON ---
PATIENT'S NAME: KAVITA RIVERA [facility] AGE: 86 Y [address] ROOM: G6229 [place], [place] [address] LOCATION: [facility] ADMIT DATE: 08/03/2016 Consultation DISCHARGE DATE: FAMILY PHYSICIAN: Rinku Dong MD ATTENDING PHYSICIAN: ALETHEA SCOTT DATE OF CONSULTATION: 08/05/2016 REFERRING PHYSICIAN: MICHAEL FRANKLIN MD TIME SEEN: 3:00 p.m. HISTORY OF PRESENT ILLNESS: Neurologic consultation has been requested on this patient who is an 86-year- old female, who has progressive periods of delirium/encephalopathy that has been ongoing for a number of days, perhaps weeks and has accelerated since the patient received an indwelling ventriculoperitoneal shunt back in June of 2016. Indication for this shunt was ventriculomegaly in the setting of generalized atrophy of the brain. Ms. Rivera had presented with some mild cognitive impairment that was consistent with some either mild dementia or borderline moderate dementia at the time, mostly with short-term memory deficits on memory recall. However, according to the notes which I reviewed, she did have a good ability to otherwise comprehend, have a conversation, and certainly did not have advanced dementia at the time. She had been seen by Neurosurgery, Dr. Combs who agreed to place a ventriculoperitoneal shunt based upon the patient's gait impairment and worsening episodes of falling. Apparently, the patient is a resident at [facility] and had been in the hospital at least on 2 prior occasions back in 2016 due to falls at the facility. It was clearly documented that the patient did have episodes of unexplained delirium, especially during her hospitalizations. It was always mentioned that the patient had likely mild dementia, but continued to be conversational. According to the healthcare proxy whose names Katalina Guevara who resides in [place], whom discussed the patient's case today. She states that ever since the patient had the ventriculoperitoneal shunt, she has gotten worse. She has had maybe one or two days of lucidity, but otherwise by many days of simply not corresponding, on occasion would answer to simple questions yes and no, but has yet to have a conversation with the family members. She recently had been brought back to our facility for a clearly documented urinary tract infection. She received a course of treatment for her UTI and is believed that she has had clean urinary cultures, yet she remains encephalopathic. I am seeing her today at her bedside and she rarely opens up her eyes, is mostly moaning, but does follow some basic commands, squeeze my hand, but that is about it. She is not conversational with any persons in the room and with the medical staff. According to the nurses, she has remained like she is for many days and there was concern of the family that she continues to spiral on a PATIENT'S NAME: KAVITA RIVERA [facility] AGE: 86 Y [address] ROOM: G6229 [place], [place] [address] LOCATION: T ADMIT DATE: 08/03/2016 Consultation DISCHARGE DATE: FAMILY PHYSICIAN: Rinku Dong MD ATTENDING PHYSICIAN: ALETHEA SCOTT [place]. Though we have no evidence of a ventricular peritoneal shunt infection nor do we have great evidence to suggest that she has a meningitis, nonetheless she is being treated empirically to cover for any type of intrathecal infection. FAMILY HISTORY: Noncontributory and we do not have any family members of known dementia. SOCIAL HISTORY: She is a resident at [facility]. There is no history of known alcohol or tobacco use or illicit drug use. She has a power of putty remover that lives in [place], name is Katalina Guevara. Gee Dyson respondent will have to go through this person. She does have a daughter who is listed in the chart who lives out of town. PRIOR MEDICAL HISTORY: Consistent with hypertension, dyslipidemia, recurrent urinary tract infections, anemia, coronary artery disease. PAST SURGICAL PROCEDURE: Ventriculoperitoneal shunt placed in June of 2016. ALLERGIES: SHE HAS MULTIPLE ALLERGIES INCLUDING PENICILLIN ALLERGY, CODEINE, CORTISONE, DIPHENHYDRAMINE, CATRER INHIBITORS, ARBS, CORTICOSTEROID, NONSTEROIDAL ANTI- INFLAMMATORIES, AND SULFUR. THOSE ARE LISTED IN THE CHART WITHOUT ANY MENTION OF THE PARTICULAR ALLERGY. CURRENT MEDICATIONS: Include, 1. Donepezil 10 mg p.o. at bedtime. 2. Melatonin 6 mg p.o. at bedtime. 3. Pravastatin 40 mg p.o. at bedtime. 4. Metoprolol 25 mg p.o. b.i.d. 5. Famotidine 10 mg p.o. daily. 6. Isosorbide mononitrate 15 mg p.o. b.i.d. 7. Levetiracetam 500 mg IV b.i.d. 8. Ceftazidime 2 g IV q.12 hours. 9. Pantoprazole 40 mg IV twice a day. The oral medications are being held currently due to the patient having a poor mental status and being unable to take oral. REVIEW OF SYSTEMS: NEUROLOGIC: The patient had fairly mild dementia and did have short-term PATIENT'S NAME: KAVITA RIVERA [facility] AGE: 86 Y [address] ROOM: [address] [place] [id number] LOCATION: T ADMIT DATE: 08/03/2016 Consultation DISCHARGE DATE: FAMILY PHYSICIAN: Rinku Dong MD ATTENDING PHYSICIAN: ALETHEA SCOTT memory deficits into the early portion of 2016. The extent of her dementia is somewhat unclear, though she clearly had more progressive period that started as a delirium state and agitation after placement of a ventriculoperitoneal shunt this year. She continued to have periods of poor responsiveness and delirium, possibly thought to be related to urinary tract infection, but she has not improved with her confusion. There is no known recent history of any stroke or other intracranial processes. Her CAT scan and MRIs of the brain have all showed generalized atrophy of the brain with some mild ventriculomegaly. She has a current indwelling right GLOBAL CEO shunt in place. The patient had progressive difficulty with walking, instability in her gait, and multiple falls. Prior to receiving the shunt, she had a high volume CSF tap done back in April of 2016, which did reveal improvement in the patient's gait, thus successfully warranting the consideration for the GLOBAL CEO shunt. CARDIAC: History of coronary artery disease, hypertension, hyperlipidemia. GASTROINTESTINAL: Recent history of iron deficiency anemia associated with melenic stools with a recent drop in hemoglobin down to 7.2. Rest of review of systems is within normal limits. PHYSICAL EXAMINATION: GENERAL: This is an 86-year-old elderly appearing female who is not responding to commands. She does not open up her eyes. On deep sternal rub, she expresses a lot of grimacing of the face and does the easy guarding of her chest. She does have apparent movement of all her limbs symmetrically. She mostly moans as if she is in pain. She is a bit agitated and delirious at this time. VITAL SIGNS: Pulse of 71 and regular, respiration rate 16, blood pressure 141/66, and temperature 97.8. NEUROLOGIC: Cranial nerves: Pupils are equal and symmetric in size at 3 mm. There is normal facial sensation. The patient does not follow commands to check her limb power. She has normal tone in all 4 limbs. She does not guard her face with her limb dropped towards the face. She apparently moves all her limbs normally and withdraws to pain. Reflexes are symmetric at +1 at the biceps and triceps, patellar reflexes, and ankle jerk reflexes. Plantar reflexes are neutral. IMPRESSION: Ms. Kavita Rivera is an 86-year-old female, who has symmetric atrophy on the brain that was well-known to Neurology and to Neurosurgery. 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 The high-volume tap resulted in the patient walking much better and with a more fluid gait. It was recommended that she undergo a ventriculoperitoneal shunt, which has been in place. The reason for the shunt has only been to improve the patient's gait and not in PATIENT'S NAME: KAVITA RIVERA [facility] AGE: 86 Y [address] ROOM: [place] [address] LOCATION: [facility] ADMIT DATE: 08/03/2016 Consultation DISCHARGE DATE: FAMILY PHYSICIAN: Rinku Dong MD ATTENDING PHYSICIAN: ALETHEA SCOTT any way to improve the patient's dementia, though her dementia was mild or perhaps maximally moderate, the issue of gait impairment and falling was the primary issue for the shunt. Postsurgery back on July 17, 2016, the patient did have a ventriculoperitoneal shunt done. Since the placement of the shunt in June of 2016, she had a downward course in her cognitive abilities. She has barely had any lucid points of whether she would be conversational. She has mostly had periods of delirium and even some agitation. She had a particular period of agitation postsurgery where she was given Haldol and she did not seem to improve. Based upon the history dwelled here from the notes and from speaking to family members, it is clear that she has primarily worsening dementia. 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 Her reaction to Haldol is very typical in Lewy body dementia where this could cause the patient to cycle into delirium. Often the delirium can last for many days if not weeks. There could be interrupted periods in time where she may have some lucid periods, but this would be a rare occurrence. From the standpoint of her encephalopathy currently, it is less likely to be associated with the urinary tract infection nor with a shunt infection from the history that has been long-standing here. The patient is on a dementia medication currently. I do not have any specific recommendations for the patient currently, but I have explained extensively to the family members concerning her progressive dementia. I was asked about specifically the use of a feeding tube in this patient and I was quite forward and truthful in stating that I do not think that it would be rucker to put in an artificial form of feeding in this patient who is 86 years old and has likely advanced dementia that is progressive. We are hoping if we could turn the corner if she has a secondary issue such as a urinary tract infection; however, this is unlikely to be the case. I was asked to comment on the possibility that she may have some seizures in the background here as it was a concern that she had some shaking of her chin. I do think that this is a chin tremor and it is not consistent with a generalized seizure nor do I have much evidence to suggest that she ever had any tonic-clonic activity where she would be postictal. Nonetheless, I am going to request an EEG to get a baseline look at her background rhythm and look for any epileptiform features. I will probably discontinue her antiepileptic medication based upon her physical exam findings. I will continue to work with Dr. Kay Frederick and will be open to speak to the family members concerning Ms. Rivera's progress. MD ADDISON HARRINGTON/bernarda PATIENT'S NAME: KAVITA RIVERA [facility] AGE: 86 Y [address] ROOM: [place] [address] LOCATION: [facility] ADMIT DATE: 08/03/2016 Consultation DISCHARGE DATE: FAMILY PHYSICIAN: Rinku Dong MD ATTENDING PHYSICIAN: ALETHEA SCOTT /[id number] d: 08/05/161 t: 08/13/16 1313, CONSULTATION REPORT
--- NOTE | ~2016-08-03 | CON ---
PATIENT'S NAME: KAVITA CASTILLO [facility] AGE: 86 Y [address] ROOM: [address] [address] LOCATION: [facility] ADMIT DATE: 08/03/2016 Consultation DISCHARGE DATE: FAMILY PHYSICIAN: Rinku Dong MD ATTENDING PHYSICIAN: ALETHEA SCOTT DATE OF CONSULTATION: 08/04/2016 REFERRING PHYSICIAN: MICHAEL FRANKLIN MD ADDENDUM: FAMILY HISTORY: Her mother had heart problems. Father, brain tumor and kidney cancer. SURGICAL HISTORY: Back surgery, appendectomy, hysterectomy, cholecystectomy, right carpal tunnel, bilateral cataracts, heart catheterization x8, lumbar puncture in 06/14, fall on 07/17/2016, ASBEST[employer] BRAKE LINING FINISHER shunt on 07/17/2016; polio at the age of 14, no restriction. REVIEW OF SYSTEMS: Review of systems was done and is negative except as mentioned in the HPI. PHYSICAL EXAMINATION: GENERAL: This is a frail 86-year-old, female. Drowsy, sleepy, hard to arouse, in no acute distress. VITAL SIGNS: Temperature 98.6, pulse 68, respirations 16, blood pressure 176/74, and O2 saturation is 98%. She is 5 feet 2 inches, weighs 127 pounds with a BMI of 23.3. SKIN: Warm and dry. Color pale. HEENT: Normocephalic and atraumatic. Sclerae are nonicteric. Conjunctivae are pale pink. Mouth is pink and moist without exudate. LYMPH: No cervical adenopathy or thyromegaly. RESPIRATORY: Rales bilaterally. CARDIAC: S1, S2 without murmurs. No lower extremity edema. ABDOMEN: Soft, nontender. Positive bowel tones. No hepatosplenomegaly. NEURO: Sleepy, few words, follows commands slowly, hard to arouse at times. MUSCULOSKELETAL: No deformities. No joint redness, swelling, or tenderness. Decreased muscle mass. SKIN: Ecchymotic area noted on right neck. Palliative performance scale is 40%, mainly in bed, unable to do most activity, extensive disease, total care, intake is minimal to sips. Conscious level is drowsy with periods of confusion. PATIENT'S NAME: KAVITA CASTILLO [facility] AGE: 86 Y [address] ROOM: [address] [place], [place] [address] LOCATION: [facility] ADMIT DATE: 08/03/2016 Consultation DISCHARGE DATE: FAMILY PHYSICIAN: Rinku Dong MD ATTENDING PHYSICIAN: ALETHEA SCOTT LABORATORY DATA: Sodium 146, potassium 3.2, BUN 15, creatinine 0.6, and GFR is greater than 60. Albumin is 2.1. White count is 6.3, hemoglobin 9.9, hematocrit 29.6, and 301,000 platelets. IMPRESSION: 1. Weakness. 2. Fatigue. 3. Dizziness. 4. Debility. 5. Dysphagia. 6. Confusion. 7. Lack of appetite. 8. Malnutrition. PLAN: No family present. Talked with power of disability attorney, Anthony Rocha, on the patient's condition, altered mental status before and after ASBE[employer] BRAKE LINING FINISHER shunt. Granddaughter states she had been fairly active, walked with a walker, was able to think well prior to her fall and the [employer]KE [employer]ING FINISHER shunt. They were hoping with the [employer]KE [employer]ING FINISHER shunt she would improve in her thought process and be more alert; she has not seen that. She got a little bit better when she went to the residential, but not able to carry on a conversation, has had decreased eating and swallowing difficulties and confusion, stating that she is just seeing that she had few words after going to the residential and continued to decline. Discussed goals of care. 1. To check out right shoulder pain, is unsure if it has been x-rayed or there is a possible injury. 2. Overall to keep the patient comfortable. 3. To see if antibiotics help with level of consciousness. 4. See a neurologist and have a neurologist consult on ASBEST[employer] BRAKE LINING FINISHER shunt patency. CODE STATUS AND ADVANCE DIRECTIVE: The patient is a do not resuscitate/do not intubate. A copy of advance directive with medical power of disability attorney is on the chart. Discussed history of dysphagia with decreased level of consciousness. The patient is to have a swallowing study done. Discussed pros and cons of artificial nutrition with patient with decreased cognitive status and dementia. Overall, medical power of disability attorney would like to see the patient to be able to eat on her own and not do artificial nutrition. If the patient's overall condition does not improve cognitively, she knows that she would not want to live in this state and be prolonged with artificial means. Discussed comfort cares and hospice. Medical power of disability attorney states that she will be PATIENT'S NAME: KAVITA CASTILLO [facility] AGE: 86 Y [address] ROOM: [address] [place], [place] [address] LOCATION: [facility] ADMIT DATE: 08/03/2016 Consultation DISCHARGE DATE: FAMILY PHYSICIAN: Rinku Dong MD ATTENDING PHYSICIAN: ALETHEA SCOTT up on Wednesday to see the patient and will talk further on goals of care and plan to see if the patient is improving or not. Total time was 65 minutes with 55 minutes for counseling, discussion of goals of care, chronic illness, recent decline, and artificial nutrition, and education of pros and cons. Thank you for allowing me to assist this patient and family. VERÓNICA GAMA NP FOR MD JONATHAN GUERRA/bernarda /[id number] d: 08/06/162132 t: 08/18/161946, CONSULTATION REPORT
--- NOTE | ~2016-08-03 | ECHO ---
Transthoracic Echocardiography Report (TTE) Demographics Patient Name KAVITA CASTILLO Date of Study 08/08/2016 Patient Number [id number] Visit Number [id number] Date of 1930 Room Number G6229 Accession Number [id number] Gender Female Age 86 year(s) Referring Iker Smith MD Retail Reset Merchandiser Mita Pritchett [facility], Physician RVT Physician Interpreting Pieter Feldman MD Preboarder Physician Supervising Ordering Physician Pieter Feldman MD, MD/P Nurse Stress Hvac Controls Technician Conclusions Contractility Score Summary Normal Left Ventricular contractility was noted. Summary The estimated left ventricular ejection fraction is 60%. The left ventricle is normal in size . Diastolic assessment reveals Grade I diastolic dysfunction. The left atrium is severely dilated by LA volume index measurement. The aortic valve is moderately sclerotic. Procedure Type of Study TTE procedure:2D Echocardiogram. Procedure Date Date: 08/08/2016 Start: 01:08 PM Study Location: Inpatient Portable Technical Quality: Adequate visualization Indications:Ventricular Tachycardia. Appropriate Use Criteria: 9 Patient Status: Routine HR: 83 bpm BP: 164/70 mmHg Allergies - Other:(codeine, sulfa, cortisone). M-Mode/2D Measurements LV Diastolic Dimension: 4.68 cm LV Systolic Dimension: 2.63 cm LV Septum Diastolic: 0.86 cm LV PW Diastolic: 0.9 cm Cardiac Output: 6.35 l/min LA Dimension: 4 cm LVOT: 1.9 cm LVOT VTI: 27 cm RV Base: 2.5 cm LV Stroke volume: 76.51 ml RV Length: 5.75 cm TAPSE: 1.94 cm TDI-S': 10.4 cm/s Doppler Measurements AV Peak Velocity: 2.09 m/s MV Peak E-Wave: 0.6 m/s AV Peak Gradient: 17.47 mmHg MV Peak A-Wave: 0.81 m/s AV Mean Gradient: 9 mmHg MV E/A Ratio: 0.74 LVOT Peak Velocity: 1.41 m/s MV P1/2t: 98 msec TR Gradient:26.63 mmHg PV Peak Velocity: 1.49 m/s Estimated RAP:5 mmHg PV Peak Gradient: 8.88 mmHg Estimated RVSP: 32 mmHg Estimated PASP: 31.63 mmHg E' Septal Velocity: 0.04 m/s A' Septal Velocity: 0.06 m/s E' Lateral Velocity: 0.07 m/s A' Lateral Velocity: 0.1 m/s Findings Left Ventricle The left ventricle is normal in size . Diastolic assessment reveals Grade I diastolic dysfunction. Mild concentric left ventricular hypertrophy. Right Ventricle Normal right ventricle structure and function. Left Atrium The left atrium is mildly dilated. Right Atrium Normal right atrial size. Mitral Valve Trivial mitral regurgitation by color Doppler. Aortic Valve The aortic valve is moderately sclerotic. Tricuspid Valve Normal tricuspid valve structure and function. Mild tricuspid regurgitation by color Doppler. Pulmonic Valve Normal pulmonic valve structure and function. Pericardial Effusion No evidence of pericardial effusion. Miscellaneous Visualized portions of the aortic root and ascending aorta appear normal in size. Pleural Effusion No evidence of pleural effusion. Contractility Score LV regional wall motion:(0-Non visualized 1-Normal 2-Hypokinesis 3-Akinesis 4-Dyskinesis 5-Aneurysm) Signature dtt: Gaston Stapleton (cardio) dtd: 08/08/16 1308 Physician Self Edit
[~2016-08-03 16:30] MED LIST changes: -KEPPRA500 MG PO; -PERCOCET 5-3251 EACH PO; -PREVACID30 M1 PO; -PROTONIX40 MG PO; -TYLENOL LI325 MG/10. PO
[2016-08-03 16:48] LABS: BILIRUBIN URINE NEGATIVE (NEGATIVE); BLOOD URINE 10 /UL (NEGATIVE); GLUCOSE URINE NEGATIVE (NEGATIVE); KETONE URINE NEGATIVE (NEGATIVE); LEUKOCYTES URINE 100 /UL (NEGATIVE); NITRITE URINE NEGATIVE (NEGATIVE); PROTEIN URINE 15 mg/dL (NEGATIVE); UROBILINOGEN URINE NORMAL (NORMAL)
[2016-08-03 16:58] LABS: COLOR URINE YELLOW (YELLOW); TURBIDITY URINE 1+ (CLEAR)
[2016-08-03 16:59] LABS: RBC URINE NEGATIVE #/HPF (NEGATIVE)
[2016-08-03 17:00] LABS: BACTERIA URINE RARE (NEGATIVE); MUCUS URINE 1+ (NEGATIVE)
[2016-08-03 17:08] LABS: BICARBONATE 29.6 mmol/L (18.0-23.0); LACTATE 0.9 mEq/L (0.50-1.60); PCO2 38 mmHg (35-45); PO2 98 mmHg (80-90)
[2016-08-03 17:10] LABS: BASOPHIL % 0.3 %; EOSINOPHIL # 0.1 K/uL (0.0-0.5); EOSINOPHIL % 1.7 %; HEMATOCRIT 28.8 % (30.0-46.0); HEMOGLOBIN 9.5 g/dL (10.0-15.0); IMMATURE GRANULOCYTE % 0.6 %; LYMPHOCYTE # 0.8 K/uL (0.8-4.0); LYMPHOCYTE % 11.4 %; MCV 94.1 fl (83.0-98.0); MONOCYTE # 0.8 K/uL (0.0-1.0); MONOCYTE % 11.2 %; MPV 10.2 fl (9.4-12.4); NEUTROPHIL # (ANC) 5.4 K/uL (1.8-7.8); NEUTROPHIL % 74.8 %; NRBC % 0 /100WBC (0-0.00); PLATELET COUNT 310 K/uL (150-450); RBC 3.06 M/uL (3.00-5.00); RDW-CV 13.3 % (11.9-14.6); WBC 7.2 K/uL (4.0-11.0)
[2016-08-03 17:19] LABS: INR - (THERAPEUTIC) 1.15 (0.92-1.07); PROTIME 12.1 SECONDS (9.8-11.4)
[2016-08-03 17:20] LABS: PTT 30 SECONDS (25-32)
[2016-08-03 17:30] LABS: ALBUMIN 2.3 gm/dL (3.5-5.0); ALK PHOS 58 IU/L (33-138); ALT 23 IU/L (12-78); ANION GAP 11.7 (10.0-19.0); AST 30 IU/L (10-40); BLOOD UREA NITROGEN 18 mg/dL (6-24); CALCIUM 8.3 mg/dL (8.5-10.5); CHLORIDE 110 mMol/L (96-110); CO2 27 mMol/L (22-32); CPK 37 IU/L (21-215); CREATININE 0.7 mg/dL (0.5-1.1); ESTIMATED GFR (MDRD EQUATION) > 60; POTASSIUM 3.7 mMol/L (3.7-5.1); SODIUM 145 mMol/L (135-145); TOTAL BILIRUBIN 0.4 mg/dL (0.0-1.5); TOTAL PROTEIN 5.5 g/dL (6.0-8.4)
[2016-08-03] MEDS ORDERED: KEPPRA500 MG PO (20:41)
[2016-08-03] MEDS ORDERED: PREVACID30 M1 PO (20:43)
[2016-08-03] MEDS ORDERED: PROTONIX40 MG PO (20:45)
[2016-08-03] MEDS ORDERED: TYLENOL LI325 MG/10. PO ×2 (20:47→20:52)
[2016-08-03] MEDS ORDERED: PERCOCET 5-3251 EACH PO (20:51)
--- NOTE | 2016-08-04 00:31 | NUR ---
PATIENT ARRIVED TO FLOOR AT 1950 ON 08/03/16 FROM ER VIA CART. VSS. IV'S TO RIGHT FOREARM AND LEFT FOREARM BOTH INTACT. NS RUNNING AT 100 ML/HR IN LEFT FOREARM. PATIENT CONTINUES TO BE DROWSY WITH ALTERED MENTAL STATUS. FAMILY AWARE OF PATIENT ARRIVAL TO FLOOR BUT DID NOT COME UP TO SEE PATIENT. UNABLE TO GET HISTORY/REPORT FROM PATIENT AT THIS TIME. INTAKE FORM SHOWS THAT PATIENT HAD INSPECTOR FINAL ASSEMBLY MECHANICAL SHUNT PLACED AND JUNE AND WAS RECENTLY HOSPITALIZED R/T SEPSIS FROM UTI. PATIENT RECENTLY RELEASED TO [facility] ON ABX. PATIENT SEEMED MORE CONFUSED, SLOW TO RESPOND, MORE LETHARGIC, AND HAD INCREASED DIFFICULTY SWALLOWING SO EMS WAS CALLED. 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 PHSYICIAN SEEN PATIENT AND ER AND ORDERS WRITTEN.
[2016-08-04 04:43] LABS: BASOPHIL % 0.6 %; EOSINOPHIL # 0.2 K/uL (0.0-0.5); EOSINOPHIL % 2.5 %; HEMATOCRIT 29.6 % (30.0-46.0); HEMOGLOBIN 9.9 g/dL (10.0-15.0); IMMATURE GRANULOCYTE % 0.6 %; LYMPHOCYTE % 15.2 %; MCH 31.5 pg (27.0-34.0); MCHC 33.4 gm/dL (32.0-36.5); MCV 94.3 fl (83.0-98.0); MONOCYTE # 0.6 K/uL (0.0-1.0); MONOCYTE % 9.2 %; MPV 10.1 fl (9.4-12.4); NEUTROPHIL # (ANC) 4.5 K/uL (1.8-7.8); NEUTROPHIL % 71.9 %; NRBC % 0 /100WBC (0-0.00); PLATELET COUNT 301 K/uL (150-450); RBC 3.14 M/uL (3.00-5.00); RDW-CV 13.4 % (11.9-14.6); WBC 6.3 K/uL (4.0-11.0)
--- NOTE | 2016-08-04 04:52 | NUR ---
Significant Event: PATIENT IS DISORIENTED TO TIME/PLACE. FOLLOWS SOME COMMANDS AND ANSWERS SOME YES/NO QUESTIONS. MUMBLES AND HARD TO UNDERSTAND AT TIMES. VSS. HR 50-70'S. SBP 150'S. AFEBRILE. 02 SATS IN UPPER 90'S BACK TO RA. NO C/O PAIN. LUNGS SLIGHT CRACKLES IN UPPER LOBES AND DIM IN BASES. PATIENT IS NON-AMBULATORY FULL LIFT. BOWELS ACTIVE. INCONTINENT OF VOID AND STOOL. REDNESS TO COCCYX BLANCHABLE. TURNED Q2H AND ALOE APPLIED. ECCHYMOSIS TO LOWER EXTREMITIES. ECCHYMOSIS TO RIGHT NECK AND SURGICAL INCISION TO RIGHT BACK OF HEAD WITH SUTURES. SITE IS HEALING. EDGES APPROXIMATED. SCAB TO LEFT OUTTER BUTTOCKS. IV TO RIGTH FOREARM SL AND LEFT FOREARM WITH NS AT 100 ML/HR. TALKED TO NURSE FROM [facility] AND THIS APPEARS TO BE PATIENT'S BASELINE SINCE LABORER TAN HOUSE SHUNT PLACED BACK IN JUNE. ADMITTED HERE FOR INCREASED DIFFICTULY SWALLOWING AND DECREASED MENTAL STATUS. PATIENT IS NPO. Follow up: SWALLOW STUDY IN AM. HOME MEDS STILL NEED ADDRESSED.
[2016-08-04 05:01] LABS: ALBUMIN 2.1 gm/dL (3.5-5.0); BLOOD UREA NITROGEN 15 mg/dL (6-24); CHLORIDE 113 mMol/L (96-110); CO2 24 mMol/L (22-32); CREATININE 0.6 mg/dL (0.5-1.1); ESTIMATED GFR (MDRD EQUATION) > 60; MAGNESIUM 2.2 mg/dL (1.8-2.6); POTASSIUM 3.2 mMol/L (3.7-5.1)
[2016-08-04 05:05] LABS: ANION GAP 12.2 (10.0-19.0); PHOSPHORUS 1.9 mg/dL (2.5-4.9); SODIUM 146 mMol/L (135-145)
--- NOTE | 2016-08-04 15:21 | NUR ---
Patient sleeping. Spoke with patient's nurse and reviewed chart. Patient has been living at [facility] and anticipate she will return there when ready for discharge. Will follow.
--- NOTE | 2016-08-04 19:59 | NUR ---
NEURO CONSULT TOMORROW.
[2016-08-05 03:48] LABS: BASOPHIL % 0.2 %; EOSINOPHIL # 0.1 K/uL (0.0-0.5); HEMATOCRIT 30.1 % (30.0-46.0); HEMOGLOBIN 10.4 g/dL (10.0-15.0); IMMATURE GRANULOCYTE # 0.1 K/uL (0.0-0.3); IMMATURE GRANULOCYTE % 0.5 %; LYMPHOCYTE # 0.7 K/uL (0.8-4.0); LYMPHOCYTE % 6.9 %; MCHC 34.6 gm/dL (32.0-36.5); MCV 89.9 fl (83.0-98.0); MONOCYTE % 10.6 %; MPV 9.7 fl (9.4-12.4); NEUTROPHIL # (ANC) 7.8 K/uL (1.8-7.8); NEUTROPHIL % 80.8 %; NRBC % 0 /100WBC (0-0.00); PLATELET COUNT 344 K/uL (150-450); RBC 3.35 M/uL (3.00-5.00); RDW-CV 12.9 % (11.9-14.6); WBC 9.6 K/uL (4.0-11.0)
[2016-08-05 04:01] LABS: ALBUMIN 2.1 gm/dL (3.5-5.0); ANION GAP 13.6 (10.0-19.0); BLOOD UREA NITROGEN 9 mg/dL (6-24); CHLORIDE 104 mMol/L (96-110); CO2 25 mMol/L (22-32); CREATININE 0.6 mg/dL (0.5-1.1); ESTIMATED GFR (MDRD EQUATION) > 60; MAGNESIUM 1.9 mg/dL (1.8-2.6); PHOSPHORUS 2.8 mg/dL (2.5-4.9); POTASSIUM 3.6 mMol/L (3.7-5.1); SODIUM 139 mMol/L (135-145)
--- NOTE | 2016-08-05 05:51 | NUR ---
significant event: disoriented x 3. Is unable to answer any questions I have asked her. Incon of both bowel and bladder. Turn every 2 hours. Unable to take anything by mouth at this time so po meds were held last night. VSS o2 sats high 90's on RA HR's 70's-80's. Did run a low grade temp.
--- NOTE | 2016-08-05 11:33 | NUR ---
A-NUTRITION F/U PER RN REPORT, PT FAILED MBS. DISORIENTED X3 LABS: NA 139, K+ 3.6, GLU 121, BUN 9, BOBCAT DRIVER/LABOR 0.6, ALB 2.1 DIET RX: NPO EST NUTR NEEDS: [id number] KCALS AND 68-79 GM PROTEIN D-AT NUTRITION RISK W/DIFF. SWALLOWING R/T WEAKNESS, ALTERED MENTAL STATUS AEB MBS RESULTS, NPO STATUS. I-IF ENTERAL NUTRITION DESIRED, RECOMMEND JEVITY 1.5 AT A GOAL RATE OF 45 ML/HR AND 125 ML H20 FLUSHES 6 TIMES DAILY. THIS WILL PROVIDE 1620 KCALS, 69 GM PROTEIN, AND 821 ML FREE WATER + FLUID FLUSHES. M/E-GOAL: NUTRITION RX WITHIN 24-48 HOURS 1)F/U DIET RX AND POC IN 2-3 DAYS 2)ASSIST NEEDED
--- NOTE | 2016-08-05 18:54 | NUR ---
[facility] AT 1750 REPORT GIVEN TO MARGARITA SANON.
[2016-08-06 00:06] LABS: ANION GAP 11.7 (10.0-19.0); BLOOD UREA NITROGEN 7 mg/dL (6-24); CALCIUM 8.3 mg/dL (8.5-10.5); CHLORIDE 106 mMol/L (96-110); CO2 25 mMol/L (22-32); CREATININE 0.6 mg/dL (0.5-1.1); ESTIMATED GFR (MDRD EQUATION) > 60; MAGNESIUM 2.1 mg/dL (1.8-2.6); POTASSIUM 3.7 mMol/L (3.7-5.1); SODIUM 139 mMol/L (135-145)
[2016-08-06 04:25] LABS: BASOPHIL % 0.4 %; EOSINOPHIL # 0.1 K/uL (0.0-0.5); EOSINOPHIL % 1.1 %; HEMATOCRIT 28.7 % (30.0-46.0); HEMOGLOBIN 9.6 g/dL (10.0-15.0); IMMATURE GRANULOCYTE % 0.5 %; LYMPHOCYTE # 0.7 K/uL (0.8-4.0); LYMPHOCYTE % 7.7 %; MCH 30.6 pg (27.0-34.0); MCHC 33.4 gm/dL (32.0-36.5); MCV 91.4 fl (83.0-98.0); MONOCYTE % 11.3 %; MPV 9.9 fl (9.4-12.4); NEUTROPHIL # (ANC) 6.7 K/uL (1.8-7.8); NRBC % 0 /100WBC (0-0.00); PLATELET COUNT 310 K/uL (150-450); RBC 3.14 M/uL (3.00-5.00); WBC 8.5 K/uL (4.0-11.0)
[2016-08-06 04:42] LABS: ANION GAP 11.5 (10.0-19.0); BLOOD UREA NITROGEN 7 mg/dL (6-24); CALCIUM 8.6 mg/dL (8.5-10.5); CHLORIDE 107 mMol/L (96-110); CO2 25 mMol/L (22-32); CREATININE 0.6 mg/dL (0.5-1.1); ESTIMATED GFR (MDRD EQUATION) > 60; MAGNESIUM 2.2 mg/dL (1.8-2.6); PHOSPHORUS 2.1 mg/dL (2.5-4.9); POTASSIUM 3.5 mMol/L (3.7-5.1); SODIUM 140 mMol/L (135-145)
[2016-08-06 04:43] LABS: ALBUMIN 1.9 gm/dL (3.5-5.0)
--- NOTE | 2016-08-06 05:17 | NUR ---
Significant Event: DROWSY. SLEPT MOST OF SHIFT. OPENS EYES TO VERBAL COMMAND. WITHDRAWS TO PAIN. ARMS CONTRACTED. PUPILS 3.0 AND BRISK. OCCASIONALLY MUMBLES UNCOMPREHENDABLE WORDS. TREMORS NOTED TO MOUTH AND HANDS. IVS TO LEFT FOREARM AND RIGHT FOREARM RUNNING INTERMITTENT ANTBIOTICS, D5W AT 50ML/HR, AND INTERMITTENT IV POTASSIUM. SURGICAL SITE TO BACK OF HEAD HAS STITCHES AND OPEN TO AIR. NPO DUE TO BEING UNABLE TO SWALLOW AND NOT ALERT ENOUGH. FEVER OF 100.1 AT 2300 GAVE 650MG RECTAL TYLENOL. CAME DOWN TO 98.2. SBP IN 120S-130S. HEART RATE 70S-90S. TACHYPNEIC. PATIENT HAD 9 BEATS OF SVT AT 2330 BMP AND MG DRAWN. K 3.7, MG 2.1. HAD ANOTHER 10 BEAT RUN OF SVT AT 0300. GAVE 40MEQ K IV. EEG IN AM. FULL LIFT. Q2 DUTTA. Follow up: MIDLINE PLACEMENT TODAY. PALLATIVE CARE. EEG.
--- NOTE | 2016-08-06 10:20 | NUR ---
F/U ON POC. PT REMAINS NPO. PER ST DOES NOT WANT A PEG. REC JEVITY 1.5 VIA DOBHOFF TO RUN AT GOAL RATE OF 45 ML/HR W/ 125 ML H20 FLUSHES EVERY 4 HRS AND ORDER DIET PER ST RECS (PUREE NECTAR LIQUIDS). WILL F/U IN 2-4 DAYS.
--- NOTE | 2016-08-06 11:55 | NUR ---
CLARIFICATION: SPEECH THERAPY RECOMMENDATIONS IF FAMILY SHOULD CHOOSE TO CONT PO, ARE FOR HONEY THICK LIQUIDS AND PUREED FOODS NOT NECTAR THICK LIQUIDS PER NUTRITIONAL YEAST SUPERVISOR NOTE. THANK YOU
--- NOTE | 2016-08-06 14:18 | NUR ---
Significant Event: OPENS EYES TO VOICE, WITHDRAWS TO PAIN, INCOMPREHENSIBLE WORDS/MOANS. DOES NOT FOLLOW COMMANDS. PUPILS 2.0 BRISK. SBP 140'S, HR 70-80'S, TMAX 99.1, SATS HIGH 90'S ON ROOM AIR. BOWEL SOUNDS HYPOACTIVE. WEST. L) MIDLINE PLACED TODAY. 25 BEATS VTACH, KCL GIVEN. EEG DONE TODAY. POA TO VISIT WEDNESDAY, WANTS TO CONTINUE PLAN OF CARE TO SEE IF ABX HELP THEN MAY CONSIDER COMFORT CARES, DO NOT WANT TUBE FEEDINGS. CT CERVICAL & CT ABDOMEN/PELVIS SCHEDULED FOR THIS AFTERNOON.
[2016-08-07 04:27] LABS: ANION GAP 12.6 (10.0-19.0); BLOOD UREA NITROGEN 6 mg/dL (6-24); CALCIUM 8.6 mg/dL (8.5-10.5); CHLORIDE 104 mMol/L (96-110); CO2 25 mMol/L (22-32); CREATININE 0.5 mg/dL (0.5-1.1); ESTIMATED GFR (MDRD EQUATION) > 60; MAGNESIUM 2.3 mg/dL (1.8-2.6); POTASSIUM 3.6 mMol/L (3.7-5.1); SODIUM 138 mMol/L (135-145)
--- NOTE | 2016-08-07 05:01 | NUR ---
Significant Event: The Patient is Alert, say few words like "HI" and "YES". She mainly moans when moved. Moves all extremities spontaneously, not to command. Up with full lift, Q2H turns. VSS. On room air. Butler draining yellow urine. No S/S of pain. Old surgical incision to her head is sutured and open to air, abdominal incision covered by a Steri-strip and looks dry and intact. Bruising to all extremities. Patria area is red and looks like a rash- Nystatin cream applied. Generalized Edema. Midline PIV to the Left upper arm infusing D5W at 50ml/hr. PIV to the Left forearm saline locked. NPO. Follow up:
--- NOTE | 2016-08-07 13:30 | NUR ---
Introduced self and role of care management to patient and her granddaughter/ POA Charissa Guevara. Patient got a dobbhoff today. Patient has been at [facility] and will return there when ready. Will follow.
--- NOTE | 2016-08-07 15:35 | NUR ---
Significant Event: MORE ALERT THAN YESTERDAY BUT OVERALL DROWSY. DOES NOT FOLLOW COMMANDS BUT GIVES MUMBLING/MOAN RESPONSE TO QUESTIONS. SPONTANEOUS MOVEMENT IN ALL EXTREMITIES, STIFF, WORKING WITH THERAPY. WEST. ULTRASOUND DONE TO FOLLOW UP ON PELVIC CYST FOUND ON CT. DOBHOFF PLACED PER FAMILY REQUEST. JEVITY 1.5 AT 20 ML/HR GOAL RATE OF 45 ML/HR, 125 ML H20 FLUSH Q6 HOURS. MIDLINE SL AFTER GIVING K-PHOS. PO POTASSIUM ALSO GIVEN. L) FOREARM IV SL.
[2016-08-07 20:48] LABS: ANION GAP 14.2 (10.0-19.0); BLOOD UREA NITROGEN 8 mg/dL (6-24); CALCIUM 8.4 mg/dL (8.5-10.5); CHLORIDE 107 mMol/L (96-110); CO2 23 mMol/L (22-32); CREATININE 0.5 mg/dL (0.5-1.1); ESTIMATED GFR (MDRD EQUATION) > 60; MAGNESIUM 2.3 mg/dL (1.8-2.6); POTASSIUM 4.2 mMol/L (3.7-5.1); SODIUM 140 mMol/L (135-145)
--- NOTE | 2016-08-08 02:51 | NUR ---
Significant Event: Patient has been fairly alert all shift. Tries to talk and speaks in a mumble. Follows some commands but not consistent. PERRLA. Unable to assess orientation or sensation. Responds to name. Says hi, how are you, and yeah. Spontaneous movement to all extremities and responds to pain. Stiff. VSS. Afebrile. Edematous. On room air. Lungs clear and diminished. Butler intact draining yellow urine without complications. Bowel sounds active. No BM this shift. Dobhoff to right nare at 55 cm with Jevity running at goal of 45 mL/hr with 125 mL water flushes Q6H. Tolerates feeding with no residual. Repositioned Q2H. Elevated extremities. Midline to left upper arm and PIV to left forearm SL with no complications. Has had occasional runs of Vtach. Dr. Nuñez notified. BMP and Mg drawn with no other new orders. SCDs in place. Follow up: POA to visit today, monitor TF and neuro status, BM, reposition
[2016-08-08 05:50] LABS: CREATININE 0.6 mg/dL (0.5-1.1); ESTIMATED GFR (MDRD EQUATION) > 60
--- NOTE | 2016-08-08 17:01 | NUR ---
Significant Event: Patient opens eyes spontaneously. When in patient room, patient continuously mumbles incoherently. Mouth tremor noted. Stays very stiff with any kind of movement. Arms stayed very stiff throughout shift. Hypertensive, all other VSS on room air. Patient having conduction changes on telemetry throughout shift, cardiology consulted. ECHO done, EKG done. Toprol started. Butler patent and draining yellow urine. Patient accidentally pulled dobhoff out, dobhoff replaced per MD order. Jevity running at 45 mL/hr with H20 flushes 250 mL q 6 hours. Bad yeast infection noted to groin, nystatin ointment applied. Sutures removed from SMALL CRAFT OPERATOR shunt insertion site. IV to L) FA, saline locked. Midline to upper L) arm, saline locked with intermittent antibiotics. Follow up: VS q 4 hours. Up with full lift. Tube feeds.
--- NOTE | 2016-08-09 03:30 | NUR ---
Significant Event: Opens eyes to voice, able to state first name on occasion otherwise mumbles incoherent incomprehensible sounds. Withdraws in all extremities, flexion and contractures evident to bilateral upper extremities. PERRLA 3mm brisk. Systolic 110-140's, HR 70's, weak pedal pulses. L.S. clear and diminished in lower lobes on RA. B.S. hypoactive, Dobhoff to R) nare at 63cm feeding at 45mL/hr with H2O flush 250mL Q6Hrs, no residuals. 1 moderate bowel movement this shift, incontinent. Butler catheter intact draining light jillian urine, adequate urine output. L) upper arm midline infusing NaCl at TKO with intermittent Atbx. R) forearm PIV SL'd. Turn Q2Hrs. Full lift for transfers. Follow up: Neuro checks, continue to monitor. Nystatin to groin, oral cares.
[2016-08-09 08:58] LABS: BASOPHIL % 0.5 %; EOSINOPHIL # 0.2 K/uL (0.0-0.5); EOSINOPHIL % 4.2 %; HEMATOCRIT 27.8 % (30.0-46.0); HEMOGLOBIN 9.1 g/dL (10.0-15.0); IMMATURE GRANULOCYTE # 0.1 K/uL (0.0-0.3); IMMATURE GRANULOCYTE % 0.9 %; LYMPHOCYTE # 0.8 K/uL (0.8-4.0); LYMPHOCYTE % 13.4 %; MCH 30.8 pg (27.0-34.0); MCHC 32.7 gm/dL (32.0-36.5); MCV 94.2 fl (83.0-98.0); MONOCYTE # 0.6 K/uL (0.0-1.0); MONOCYTE % 9.7 %; NEUTROPHIL # (ANC) 4.1 K/uL (1.8-7.8); NEUTROPHIL % 71.3 %; NRBC % 0 /100WBC (0-0.00); PLATELET COUNT 354 K/uL (150-450); RBC 2.95 M/uL (3.00-5.00); RDW-CV 13.2 % (11.9-14.6); WBC 5.8 K/uL (4.0-11.0)
[2016-08-09 09:25] LABS: ANION GAP 11.5 (10.0-19.0); BLOOD UREA NITROGEN 13 mg/dL (6-24); CALCIUM 8.7 mg/dL (8.5-10.5); CHLORIDE 107 mMol/L (96-110); CO2 28 mMol/L (22-32); CREATININE 0.6 mg/dL (0.5-1.1); ESTIMATED GFR (MDRD EQUATION) > 60; PHOSPHORUS 2.6 mg/dL (2.5-4.9); POTASSIUM 3.5 mMol/L (3.7-5.1); SODIUM 143 mMol/L (135-145)
[2016-08-09 09:38] LABS: ALBUMIN 1.9 gm/dL (3.5-5.0)
--- NOTE | 2016-08-09 17:14 | NUR ---
Significant Event: Patient opens eyes spontaneously. Mumbles, moans incoherently most of the time. Does not consistently follow commands. Mouth tremor. VSS, on room air. Conduction changes and runs of harley kapoor MD aware. Amio gtt started, turn off amiodarone at 1100 on 08/10/16. Butler patent and draining yellow urine. Last BM 08/08. Dobhoff to R) nare feeding tube feeds at 45 mL/hr with H20 flushes q 6 hours of 250 mL. If dobhoff were to come out accidentally, POA wants to be called before replacing it. Yeast infection noted to groin, nystatin ointment applied. BRAILLE TEACHER shunt site, open to air, sutures removed yesterday. IV to R) FA, saline locked with intermittent antibiotics. Midline to L) upper arm infusing amio gtt. Follow up: VS q 4 hours. Up with full lift. Tube feeds. Speech eval in AM.
--- NOTE | 2016-08-10 04:05 | NUR ---
Significant Event: Alert to self, able to state first and last name. Mumbling, incoherent and incomprehensible speech. PERRLA 3mm brisk. Able to follow simple commands at times, squeezes with RUE weak strength and lifts LUE up off of bed some effort against gravity. Wiggles toes to bilateral lower extremities on command. Flexion/withdraw present in all four extremities. Upper extremities have contractures, overall rigid and hypotonic. Systolic 120-140's, HR 60-70's, 1+ pedal edema, weak pedal pulses. Amiodarone infusing in L) upper midline cath at 0.5mg/min to be shut off at 1100 this AM. L.S. clear and diminished in lower lobes on RA. B.S. active, one moderate BM this shift, dobhoff to R) nare at 63cm infusing Jevity at 45mL/hr with H20 flush 250mL Q6Hrs at 0500, 1100, etc. Butler catheter intact draining jillian urine, adequate output this shift. PIV R) forearm SL'd, receiving intermittent Atbx. Denies pain. Turn Q2Hrs. Bilateral mittens to hands for previous D/C of dobhoff. Follow up: ST to evaluate pt this AM for swallow, frequent oral cares. PT/OT to follow, Neuro checks, re-orient as needed. D/C Amiodarone drip at 1100 this AM.
[2016-08-10 05:16] LABS: CREATININE 0.6 mg/dL (0.5-1.1); ESTIMATED GFR (MDRD EQUATION) > 60
--- NOTE | 2016-08-10 08:42 | NUR ---
A - NUTRITION F/U. A/O X 1. 6/11 LABS: K+ 3.5, GLU 119, BUN/CHECKER PRODUCT DESIGN 13/0.6. PT W/ 1+ EDEMA T/O. TF VIA DOBHOFF JEVITY 1.5 AT 45 ML/HR INFUSING W/O DIFFICULTY. FLUSHES 250 [address] EVERY [address] TO REEVAL SWALLOW THIS AM. D - DIFFICULTY SWALLOWING R/T NEUROMUSCULAR DYSFUNCTION AEB ST RECS FOR TF. I - GOAL: CONT TO MEET NEEDS VIA EN. M/E - WILL F/U IN 2-4 DAYS.
--- NOTE | 2016-08-10 14:01 | NUR ---
Significant Event: PATIENT ALERT, MUMBLES. LATER MORNING TO THIS AFTERNOON, MORE CONVERSATION BUT VERY HARD TO UNDERSTAND. FOLLOWS COMMANDS. UNABLE TO ASSESS FOR NUMBNESS/TINGLING. PUPILS 3MM, BRISK. LUNGS CLEAR AND DIM ON ROOM AIR. RT NARE DOBHOFF INTACT, JEVITY AT 45MLS/HR WITH 250MLS H2O FLUSHES Q 6HRS. PATIENT NOW CAN HAVE PUREED DIET WITH NECTAR LIQUIDS FOR PLEASURE FEEDS. IV IN LEFT UPPER ARM NOW SALINE LOCKED. WEST DRAINING YELLOW URINE. INCONTINENT OF BOWEL. UP WITH FULL LIFT. ALARMS ON FOR SAFETY. Follow up: AWAITING PLAN. IV ANTIBIOTICS.
--- NOTE | 2016-08-11 02:40 | NUR ---
Significant Event: Patient is alert and oriented to self. Talkative--mumbles. Smiles and follows some commands. Denies pain. Does grimace and moan when moving arms but otherwise appears comfortable. Repositioned Q2H. PERRLA. Arms contractured. Rigid. 2+ pulses. VSS. SR with 1st degree HB. Afebrile. Trace edema to BLE. On room air. Lungs clear and diminished. Bowel sounds active. Smears this shift. Butler in place with light yellow urine draining without complications. Jevity running at 45 mL/hr (goal) to right nare with water flushes Q6H 250 mL. Midline to left upper arm SL with no complications. Bilateral mittens removed--does not move arms or attempt to pull at lines. SCDs in place. Frequent oral cares. Bruising to arms and legs and yeast infection to groin. Open areas to buttocks. Aloe applied with repositioning. Pureed diet with nectar thick liquids for pleasure. Follow up: reposition Q2H, heather HEREDIA
[2016-08-11 04:17] LABS: ANION GAP 9.8 (10.0-19.0); BLOOD UREA NITROGEN 13 mg/dL (6-24); CALCIUM 8.7 mg/dL (8.5-10.5); CHLORIDE 107 mMol/L (96-110); CO2 30 mMol/L (22-32); CREATININE 0.5 mg/dL (0.5-1.1); ESTIMATED GFR (MDRD EQUATION) > 60; MAGNESIUM 2.4 mg/dL (1.8-2.6); POTASSIUM 3.8 mMol/L (3.7-5.1); SODIUM 143 mMol/L (135-145)
--- NOTE | 2016-08-11 13:01 | NUR ---
Significant Event: PATIENT ALERT TO SELF. FOLLOWS COMMANDS MOST OF THE TIMES, MORE SO WITH FEET. GENERALLIZED WEAKNESS. PUPILS 3MM, BRISK. LUNGS CLEAR AND DIM , ON ROOM AIR. RT NARE DOBHOFF INTACT, JEVITY AT 45MLS/HR WITH Q 6HRS H2O FLUSHES (250MLS). ALSO ON PLEASURE FEEDS OF PUREED WITH NEXTAR LIQUIDS, HAS ONLY TAKEN A FEW BITES. IV IN LEFT UPPER ARM, INTERMITTENT ANTIBIOTICS. WEST DRAINING YELLOW URINE. INCONTINENT OF BOWEL. UP WITH FULL LIFT. ALARMS ON FOR SAFETY. AWAITING PLAN FOR BACK TO [facility]. Follow up: TUBE FEEDS. ALARMS
--- NOTE | 2016-08-12 02:47 | NUR ---
Significant Event: Oriented to self and able to follow some commands and moves spontaneously. Jevity at 45ml/hr through Dobhoff and medications crushed and given through Dobhoff. Full lift for transfers. Butler catheter patent draining yellow urine. Nystatin to groin area. Frequent repositioning and fecal incontinence. IV antibiotics through L)upper arm midline. H20 flushes q6h. Pureed diet with nectar thickened liquids as tolerated. Hypertensive 140's-150s SBP and other VSS. Follow up:
[2016-08-12 05:10] LABS: BASOPHIL % 0.5 %; EOSINOPHIL # 0.3 K/uL (0.0-0.5); EOSINOPHIL % 3.8 %; HEMATOCRIT 30.7 % (30.0-46.0); HEMOGLOBIN 9.8 g/dL (10.0-15.0); IMMATURE GRANULOCYTE # 0.2 K/uL (0.0-0.3); IMMATURE GRANULOCYTE % 2.1 %; LYMPHOCYTE # 0.8 K/uL (0.8-4.0); LYMPHOCYTE % 10.3 %; MCH 30.7 pg (27.0-34.0); MCHC 31.9 gm/dL (32.0-36.5); MCV 96.2 fl (83.0-98.0); MONOCYTE # 0.8 K/uL (0.0-1.0); MONOCYTE % 9.4 %; NEUTROPHIL % 73.9 %; NRBC % 0 /100WBC (0-0.00); PLATELET COUNT 342 K/uL (150-450); RBC 3.19 M/uL (3.00-5.00); RDW-CV 13.6 % (11.9-14.6); WBC 8.2 K/uL (4.0-11.0)
[2016-08-12 05:35] LABS: ANION GAP 11.9 (10.0-19.0); BLOOD UREA NITROGEN 13 mg/dL (6-24); CALCIUM 8.7 mg/dL (8.5-10.5); CHLORIDE 106 mMol/L (96-110); CO2 28 mMol/L (22-32); CREATININE 0.6 mg/dL (0.5-1.1); ESTIMATED GFR (MDRD EQUATION) > 60; MAGNESIUM 2.3 mg/dL (1.8-2.6); POTASSIUM 3.9 mMol/L (3.7-5.1); SODIUM 142 mMol/L (135-145)
--- NOTE | 2016-08-12 12:49 | NUR ---
Talked to patient and her granddaughter/POA, Nellie. Charissa Guevara says DrRoshan said she might to be ready to return to [facility] on Wednesday. Reminded her that patient will not be able to go to [facility] or any SNF in the area with the dobbhoff. Called and spoke with Cait at [facility] and udpated her. She says they can't take her back with a dobbhoff. She says they could do once a day ATBs. She says patient's room is on hold. Will follow.
--- NOTE | 2016-08-12 17:02 | NUR ---
Significant Event: Alert, oriented to self only. VSS, SBPs 140-160s, HRs 60-70s, on room air. No s/s of pain. Upon initial assessment unable to push meds in via dobhoff; nurse was able to unclogged dobhoff after 3-4 hours et give medications et restart tube feeding. Around 1500 Dobhoff was once again noted to be clogged et unable to infuse tube feeding or flush with water. Dr. Watson notified et orders recieved. Patient's POA notified of situation; see note in chart. Dobhoff reinserted to R) nare after 2 attempts; tube at 60. Abd xray completed; awaiting verification of tube placement from radiologist for use. Butler patent with 1150 ml of yellow urine out this shift. Up to chair with full lift; reposition every 2 hours while in bed. PT/OT working with patient Follow up: verification of dobhoff placement; restart tube feeding; d/c to NH on Wednesday with hospice?
--- NOTE | 2016-08-13 04:02 | NUR ---
Significant Event:Patient alert to self most of time. Mumbles incomprehendable words. Occasionally able to make out a couple words. Usually able to nod yes or no appropriately. Tremors noted to mouth and arms. Keeps arms tight and contracted. No s/s of pain. PERRLA. SBPs in 110s-120s. HRs in 60-80s. SR with first degree heart block. Afebrile. Dobhoff to right nare running tube feed at 45ml/hr with q6 hours 250ml flushes. Meds crushed and given through dobhoff. Midline to left upper arm running intermittent antibiotics. Butler in place draining yellow urine. up full lift. Pureed diet with thick liquids; 1:1 feeder. Nystatin to groin- red/yeast. Loose stools. Lungs clear/diminished on room air. Follow up: back to [facility] wednesday.
--- NOTE | 2016-08-13 08:24 | NUR ---
A - NUTRITION F/U. PT A/O X 1. NO NEW LABS. NO EDEMA. HAVING LOOSE STOOLS, LACTINEX ORDERED. DIET: PUREE W/ NECTAR LIQUIDS, PO USUALLY BITES. PT IS A 1:1 FEEDER. JEVITY 1.5 AT 45 ML/HR CONTS VIA DOBHOFF W/ 250 ML H20 FLUSHES EVERY 6 HRS. TF RUNNING W/O DIFFCIULTY. PT TO GO BACK TO SNF WEDNESDAY. D - INADEQUATE ORAL INTAKE R/T DIFFICULTY SWALLOWING AEB NEED FOR EN. I - GOAL: CONT TO MEET NEEDS VIA EN. M/E - CONT TF ORDERED. WILL F/U 3-5 DAYS IF STILL HERE.
--- NOTE | 2016-08-13 13:45 | NUR ---
Received message from patient's daughter Alley asking me to call her as she has some concerns. Received call from Julissa OWEN and patient's son is here and wants to discuss potential move to a different jail, preference is [facility]. Left [facility] for Kezia at [facility]. Talked with son and patient. Patient not able to engage in conversation. Is able to say no and yes and rest of speech is gibberish. Not really sure she understands the questions. Son reports his mother told him she does not want to go back to [facility]. Asked about his preference and he says he has been told [facility] has better staffing so they should be able to take the time needed to feed her. Did talk with him about patient going back on Hospice. Multiple times he tries to ask patient if she wants a PEG tube for feeding and if wants to go back to [facility]. Most consistent answer is no to PEG tube and yes to return to [facility]. Received call from Kezia at [facility] and they do have beds. She does not know if patient would get a private room or not. She says they would assess patient if family wants them to. Spoke with son and updated him. He says while I was out he asked her about Hospice and she is open to Hospice. He says he talked to the appellate conferee at [facility] earlier and he told him [facility] had a nice Hospice area and it was better staffed. But he says to go ahead and make a referral to [facility]. Told him I would be calling Katalina EVANS, before making the referral and he says that is OK. Talked to Dr. Watson and updated him. He says not to call Alley back as she needs to be going through Katalina Guevara for her information. Called and talked to Katalina EVANS regarding conversation with her uncle. She is OK with making a referral to [facility]. She says to talk to her about if they accept or not, as she wants to decide what she will tell the family. She says patient has a good roommate at [facility] and she is not sure they wants her moved. Told her about call from Alley and she says to not call her back. She says unless you have 30 minutes to waste don't call her. She says she is keeping her updated and she doesn't need to be calling different people all the time. Told son was going to make referral to [facility] and he says to hold off on the referral. He has decided since patient wants Hospice maybe it would probably be fine for her to return to [facility] to their hospice unit, since hospice would be there. Told him I am not sure [facility] has a hospice unit. He says the appellate conferee told him they do. He says with hospice she will have more staff to care for her. Explained to him hospice does not mean additional staff 21/09 and that the hospice nurse will not see her daily, and explained the role of hospice. He is upset hospice is not there 21/09. Told her there are hospice houses in [facility] but not in this area. He says he is going to go visit [facility] and talk to them about their hospice unit and he will go visit [facility] also. Told him to let me know after his visits if he wants me to make a referral to [facility]. He says he will. Will follow.
--- NOTE | 2016-08-13 16:47 | NUR ---
Significant Event:VSS, remains DNR, appears relaxed, unable cognitively to state needs or pain. Pt arouses easily later in a.m. around 0830, stated name, then mumbles other words. Recognized son. Dobhoff to R nare intact, TF Jevity at 45ml/hr with 250 ml H20 flushes. Ate bites of pureed diet, and drank thickened juice, water. Remains 1:1 feeder. Incontinent of 2 small loose BMs, during activity. Butler intact with ijllian yellow urine. Pt able to pivot/tx with PT staff, full lift for nursing staff. Patria area red, ointment applied. Midline IV per LUE for antibiotics. Follow up:Monitor
--- NOTE | 2016-08-14 04:21 | NUR ---
Significant Event: PATIENT IS DISORIENTED X3. DOES NOT ANSWER APPROPRIATELY. DOES OPEN EYES TO VERBAL STIMULI. PATIENT PLEASANT THROUGHOUT NIGHT. POWERGLIDE TO LEFT UPPER ARM. ON ROOM AIR. PALLITIVE CARE. HEALED INCISION TO RIGHT BACK OF HEAD. DOBHOFF TO RIGHT NARE AT 45. PUREE DIET WITH NTL. WEST TO DD. 1200ML OUT. Follow up: PLAN TO DISCHARGE TO NURSING FACILITY ON WEDNESDAY WITH HOSPICE.
--- NOTE | 2016-08-14 18:44 | NUR ---
Late morning spoke with patient's son. He says he has talked with Katalina Guevara and they do want patient to go to any of the NHs in [place] and want her in a Hospice House in [place]. Asked him if he knows which facility he wants. He says no, but they had a relative in one in [place] last year and he will find out. Searched on line and called a [place] [facility] and was told there are 2 "hospice houses" in [place]. [facility] and [facility] which is associated with [facility]. Son comes back and tells me their relative was not in a hospice house, but a skilled facility and then went to his own home in [place] with family and hospice. He says that is not an option for us so continue to see what you can find. Spoke with staff at [facility]. They currently do not have any openings but may have next week. She says they are private pay and do not accept Medicaid. Left [facility] for adm staff at [facility]. Son not in patient's room mid afternoon. Called and talked with Katalina Guevara. She says she knows uncle wants her at [facility] but she prefers she returns to [facility]. Told her [facility] is private pay and she sys they can not pay for that. Told her I had not made the referral to [facility]. She says to go ahead with the referral in case uncle wants it, but her preference is for her to return to [facility] where she knows the staff and her roommate. Called and spoke with Kezia at [facility] and discussed referral. Kezia says they probably can't accept her. Have not heard back from [facility] in [place]. Anticipate return to [place] on Wednesday. Will follow.
--- NOTE | 2016-08-14 19:16 | NUR ---
Significant Event: A/O X1, Full Lift, transfers OOB w/ PT, up in chair, does not follow commands, speech mumbling at times, L)Powerglide saline lock/clamped, head & abdomen incisions healed. romero patent, incontinent of stool, Open area to coccyx. Jevity 45ml/hr- H2O flush 250 ml Q6hr per R)Dobhoff. 1:1 feeder -takes 10-25% of Pureed meals/nectar thick liquids, Follow up: plan for care home on Wednesday with Hospice.
--- NOTE | 2016-08-15 04:40 | NUR ---
Significant Event: ALERT TO SELF AT TIMES. UNABLE TO ASSESS N/T. PATIENT CAN OCCASIONALLY STATES PHRASES. OTHER TIMES INCOMPREHENDABLE WORDS. PUPILS 3.0 AND BRISK. DOES NOT FOLLOW COMMANDS. MOVES SPONTANEOUSLY. HANDS ARE CONTRACTED INWARDS. TREMORS NOTED TO MOUTH AND ARMS. LUNGS CLEAR AND DIMINISHED ON ROOM AIR. SINUS RHYTHM WITH FIRST DEGREE HEART BLOCK. INCONTINENT LOOSE STOOL. WEST DRAINING LIGHT YELLOW URINE. GROIN/BUTTOX RED - CREAM APPLIED. FOOT SCDS ON. NO S/S OF PAIN. MIDLINE TO LEFT UPPER ARM RUNNING INTERMITTENT ANTIBIOTICS. PUREED DIET WITH THICKEN LIQUIDS. 1:1 FEEDER. DOBHOFF TO RIGHT NARE RUNNING AT 45ML/HR WITH Q6 HOUR 250ML FLUSHES. CRUSH MEDS IN DOBHOFF. UP FULL LIFT. Q2 DUTTA. AFEBRILE. SBP IN 130S-140S. HR IN 60S-70S. Follow up: BACKED TO [facility] WEDNESDAY
--- NOTE | 2016-08-15 18:59 | NUR ---
Significant Event: A/O X1, full lift, up in chair today, does not follow commands, speech clear at times and mumbling incoheriently at times. L)Powerglide saline lock, romero patent, groin/buttocks red. area. aloevesta applied. R)dobhoff, jevity 45ml/hr, H20 flush 250 ml q6hr. 1:1 feeder, pureed diet/nectar thick liquids. takes only bites of diet. family @ bedside today. Follow up: plan to return to [facility] Wednesday with Hospice
--- NOTE | 2016-08-16 04:33 | NUR ---
Significant Event: Patient is alert to self. Drowsy at times, awoken by voice. Up with full lift for nursing, 2 assist for PT. VSS on room air. Reposition q2 hours. Dobhoff to right nare with Jevity running at 45 ml/hr with 250 q6 hour water flushes. Butler intact, 1800 mls out this shift. Incontinent of stool. Midline IV to left upper arm, saline locked. Receiving intermittent antibiotics. Pureed diet with nectar thickened liquids. 1:1 feeder. Patient is cooperative with cares. Follow up:
--- NOTE | 2016-08-16 19:35 | NUR ---
Significant Event: Pt was able to walk to chair this am with 2 assist. She is able to answer simple questions appropriately at times. Pt took a few bites with lunch. She had 2 loose stools. She has a reddened bottom and has a small open area. Aloe vesta applied and pt turnedd per protocol. She has a dobhoff to right nare. TF infusing without difficulty. Pt was given heparin injection. She complained of discomfort with shot and then continued to c/o abdominal pain and was moaning. Decided to put pt back in bed. Her catheter was empty of 700ml prior to returning her to bed. Upon getting her in bed and performing cath cares, pt was incont of urine around tubing. Catheter then drained 275ml more of urine. Unsure if catheter was kinked and that is what caused abdom pain but catheter is now draining and pt is no longer c/o abdominal pain. Midline iv intact to left upper arm. Follow up: plan for placement for hospice care.
--- NOTE | 2016-08-17 04:34 | NUR ---
Significant Event: Patient is alert to self. Disoriented to time and place. Mumbles at times. VSS on room air. Up with full lift for nursing, 2 assist for PT. Reposition q2 hours. Butler intact, 1175 mls out. Incontinent of stool. BM x 1. Dobhoff to right nare with Jevity running at 45 ml/hr with q6 hour 250 ml water flushes. Left upper arm midline IV, saline locked. Receives intermittent IV antibiotics. Patient is cooperative with cares. Follow up:
--- NOTE | 2016-08-17 12:15 | NUR ---
Call from Cait at [facility] asking if patient returning to [facility] today. Told her I anticipate she will. She says they will want Hospice to be able to admit her on the day she returns or they won't be able to accept her. Spoke with [facility] and she says son is asking about patient going to [facility]. Told her I will check into it but they have not been accepting pts due to staffing. Left [facility] for Deidre SALAZAR at [facility]. Received call from Dr. Watson and updated him. He plans on patient returning to [facility] today. Called and talked with Katalina EVANS on the phone. She says the plan is for patient to return to [facility] today with [facility]. She knows her uncle is concerned about this but she says other options have not worked out and she and patient are OK with return to [facility]. She says one of his concerns is staff won't take the time to feed her. She asks about volunteers to help with feeding. Told her [facility] has volunteers, but to not think they would be available to feed her every meal. Talke with patient's son regarding [facility], not accepting new pts at this time due to staffing issues. He voices concerns about mom needing fed. Asked him if he is returning to [place]. He says he is staying until she passes. He tells me he is a retired nurse and cared for his sister on hospice for about 4 months before she , as she didn't like where she was. He says he would do the same for his mom if they had a home for her to go to. Told him since she doesn't have a home anymore, he would help with her at the [facility]. Encouraged him to go and help her with meals daily. Told him [facility] might have a volunteer for one meal a day, but since he is staying and visiting her maybe he could help her with 2 meals per day. He says he could maybe to that. Talked to Cait at [facility] and they will pick her up between 1315 and 1330 today. Orders faxed to [facility]. Gissell has been communicating with [facility] and they will work with [facility] on the time they will go there to admit her to Hospice today. Called and updated Katalina EVANS regarding transfer time and conversation with patient's son. She says she is glad I suggested he help with her feedings as she thinks he could help also, since he is here. Nurse will call nurse to nurse report. Patient to transfer via [facility] van to [facility] today and will be admitted to Hospice.
--- NOTE | 2016-08-17 13:09 | NUR ---
patient to transfer to [facility] at 1315. hx dementia. mumbles a few words, alert to self. jairon removed this am, as well as romero catheter at 1300. bilateral hearing aides. tremors noted to face. right head incision healed. small open area to coccyx-moisture barrier applied. groing slight red, just finished some antifungal ointment. vss. 130/[id number], sats 90% on room air. 1:1 feeder, ate small bites. thickened pureed nectar thick. son attentive to mothers needs. full lift. -
== END 2016-08-17 13:30 | DRG 91 ==
LOC: GMED 16:30 → GPCU 18:38 → GNTU 08-05 18:10 → GICU 08-10 06:40 → GMSU 08-15 17:40
PROVIDERS: Emergency Medicine; Hospitalist; Internal Medicine; Nurse Practitioner Acute Care; ADMIT Internal Medicine
PROC: F00ZJWZ Instrumental Swallowing and Oral Function Assessment using Swallowing Equipment (ICD-10-PCS; principal; 2016-08-04)
PROC: 4A00X4Z Measurement of Central Nervous Electrical Activity, External Approach (ICD-10-PCS; 2016-08-06)
PROC: B246ZZZ Ultrasonography of Right and Left Heart (ICD-10-PCS; 2016-08-08)
DX: T85.730A Infection and inflammatory reaction due to ventricular intracranial (communicating) shunt, initial encounter (principal); A41.9 Sepsis, unspecified organism; R65.20 Severe sepsis without septic shock; G93.40 Encephalopathy, unspecified; I47.2 Ventricular tachycardia; G03.9 Meningitis, unspecified; N18.3 Chronic kidney disease, stage 3 (moderate); R13.10 Dysphagia, unspecified; E46 Unspecified protein-calorie malnutrition; G91.9 Hydrocephalus, unspecified; F05 Delirium due to known physiological condition; E83.39 Other disorders of phosphorus metabolism; E87.6 Hypokalemia; E87.8 Other disorders of electrolyte and fluid balance, not elsewhere classified; G30.9 Alzheimer's disease, unspecified; F02.80 Dementia in other diseases classified elsewhere, unspecified severity, without behavioral disturbance, psychotic disturbance, mood disturbance, and anxiety; I25.10 Atherosclerotic heart disease of native coronary artery without angina pectoris; M48.00 Spinal stenosis, site unspecified; Z51.5 Encounter for palliative care; Z66 Do not resuscitate; I12.9 Hypertensive chronic kidney disease with stage 1 through stage 4 chronic kidney disease, or unspecified chronic kidney disease; I25.2 Old myocardial infarction
CPT/HCPCS: C1751; C9113; J0282; J0713; J1644; J1953; J2270; J3370; J3480; J7030; J7040; J7050; J7060; Q9967

== ENCOUNTER → 2016-08-03 | Outpatient (CLI) | payer MEDICARE, OTHER, MEDICAID ==
[~2016-08-03] MED LIST changes: +KEPPRA500 MG PO; +PERCOCET 5-3251 EACH PO; +PREVACID30 M1 PO; +PROTONIX40 MG PO; +TYLENOL LI325 MG/10. PO
== END | disposition disaster alternative care site (69) ==
LOC: GAMB 16:13
DX: R41.82 Altered mental status, unspecified (principal); G30.9 Alzheimer's disease, unspecified; J40 Bronchitis, not specified as acute or chronic; F02.80 Dementia in other diseases classified elsewhere, unspecified severity, without behavioral disturbance, psychotic disturbance, mood disturbance, and anxiety; I50.9 Heart failure, unspecified; N28.9 Disorder of kidney and ureter, unspecified; E78.5 Hyperlipidemia, unspecified; R53.83 Other fatigue; R50.9 Fever, unspecified; Z86.73 Personal history of transient ischemic attack (TIA), and cerebral infarction without residual deficits; Z96.89 Presence of other specified functional implants; Z79.899 Other long term (current) drug therapy; Z88.5 Allergy status to narcotic agent; Z88.8 Allergy status to other drugs, medicaments and biological substances; Z88.0 Allergy status to penicillin
CPT/HCPCS: A0422; A0425; A0427

== ENCOUNTER → 2016-08-03 | Outpatient (CLI) | payer OTHER, MEDICARE, MEDICAID ==
[2016-08-03 07:26] LABS: ANION GAP 10.9 (10.0-19.0); BLOOD UREA NITROGEN 18 mg/dL (6-24); CALCIUM 8.9 mg/dL (8.5-10.5); CHLORIDE 108 mMol/L (96-110); CO2 29 mMol/L (22-32); CREATININE 0.8 mg/dL (0.5-1.1); ESTIMATED GFR (MDRD EQUATION) > 60; SODIUM 144 mMol/L (135-145)
[2016-08-03 07:31] LABS: POTASSIUM 3.9 mMol/L (3.7-5.1)
== END | disposition disaster alternative care site (69) ==
LOC: LJOHN2 07:01
PROVIDERS: Family Medicine
DX: I10 Essential (primary) hypertension (principal); I61.8 Other nontraumatic intracerebral hemorrhage